=== PATIENT | male | born 1950 | race Caucasian/White ===

== ENCOUNTER → 2019-09-30 09:19 | Outpatient (BNVA) | payer MEDICARE, SELFPAY | PROVIDERS: Family Provider Internal Medicine; PCP Internal Medicine; Visit Provider Urology | DX: N40.0 Benign prostatic hyperplasia without lower urinary tract symptoms (principal); R33.9 Retention of urine, unspecified | CPT/HCPCS: 81001 ==

== ENCOUNTER → 2019-10-07 05:54 | Day surgery (SDC) | payer MEDICARE, SELFPAY ==
[2019-10-06 12:55] VITALS: BMI 30.5
[2019-10-07] VITALS (15 sets, daily range): BP systolic 89–118; BP diastolic 50–68; PULSE 54–60; RESP 11–19; TEMP 37; O2SAT 92–97
--- NOTE | 2019-10-07 06:00 | XACV_ITS ---
Wt: 91 kg BSA: 2.12 m2 Any Known Allergies: Other Gender: Male : 1950 Exam Type: Invasive Peripheral Vascular Procedure(s): Procedure Description: Peripheral Cath Diagnostic Procedure Exam Priority: Routine Lower Extremity Diagnostic Findings This patient has known peripheral arterial disease and has an occluded left superficial femoral artery. He has claudication which limits his ability to play golf and other activities. He has had femoral-popliteal bypass on the left which failed. He requested that I try to open the artery via a popliteal approach. He is [place] grade I, category 3; Mariella stage II. The left popliteal artery was entered rather easily. The artery is heavily calcified from beginning to end. The sheath was difficult to place due to the calcification. I used a Glidewire and a seeker catheter. The catheter was advanced about two thirds of the way up to the hip. I could never assure myself that I was in the lumen. I had no blood return through the seeker catheter. The wire would advance beyond the catheter up to approximately where the ostium of the SFA would be. It would not advance any further. Given I could never assure myself I was in the lumen I discontinued the procedure. The calcification and plaque burden makes it impossible to open the artery from an interventional standpoint. Conclusions Failed attempt at angioplasty and intervention of the left superficial femoral artery via the popliteal approach. Recommendations Vascular surgery referral. Access Site Site: Left Popliteal Sheath Size: 6 Fr Hemost... Method: Mechanical Compression Hemost... Success: Successful Procedure Details Findings Procedure Consent Obtained. Pre-Procedure Time Out. Identified patient by full name and date of as verbalized by the patient/guarantor. Does the consent match the physician's order: Yes. Accurate & Complete Informed Consent: Yes. Inpatient/Outpatient History & Physical on Chart: Yes. If H&P is completed, is and addenduem needed: N/A; If yes, is the addendum complete: N/A. Visualize and Verify Site with Patient/Guarantor: N/A. Relevant Radiology Images available: Yes. Pre-op teaching completed and patient verbalized understanding. The risks, benefits, and alternatives of sedation and/or procedure were discussed by physician. The patient agrees to continue. Procedure started. Correct patient, site and procedure confirmed by cath team. Current diagnosis: PVD. PERRLA. Strong, equal hand coremaker experimental bilaterally. Lungs clear x 5 lobes. IV Site on Arrival: 20 gauge in the left anticubital. IV Site on Arrival: Saline Lock. IV Fluids: 0.9% NaCl at KVO. 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 Pre Procedural Pulses: bilateral dorsalis pedis was Doppled. Pre Procedural Pulses: bilateral posterior tibial was Doppled. Pre Procedural Pulses: bilateral radial was 3+. Oxygen started at 2liters/min via nasal canula. left popliteal was prepped with chloroprep then draped in the usual sterile fashion. Physician notified. Baseline sample Acquired. HR: 62 BPM. Equipment: Peripheral. Cardiac Cath Pack. ACIST Manifold Kit Model BT 2000. Heparinized Saline (2 units/mL), 1000 mL bag. Physician arrived. Inventory is TR Glidewire Angled Stiff Shaft .035 260cm. Physician scrubbed in. Time out performed with cath team. Immediate Pre-Procedure Time Out. Correct Patient: Yes; Correct Procedure: Yes; Correct Site: Yes; Correct Patient Position: Yes; Correct Supplies: Yes; Dried Flammable Prep: Yes; Blood Products Available: No;. Lidocaine 1% infiltrated to the left popliteal. Arterial access obtained. glidewire inserted into left SFA. seeker inserted over glidewireinto left SFA. Patient's family updated. glidewire removed. Hand injection performed. glidewire inserted. glidewire removed. seeker removed. A Mechanical Compression was successful obtaining hemostatsis at the Left Popliteal insertion site. Sheath(s) removed and manual pressure held until hemostasis was achieved. Sterile 4x4 and Op-site applied to the puncture site. No oozing or hematoma noted. Post sheath removal instructions were given and the patient verbalized understanding. Post Procedure: Pulses reassessed and unchanged. PERRLA. Strong, equal hand coremaker experimental bilaterally. No VTE prophylaxis required. Fluoro: 8:09. Contrast type used: Visipaque 320 mgI/mL, 200 mL bottle. [id number]. Post-op diagnosis: PAD. Complications: none. Estimated blood loss: 5mL-10mL. Procedure completed. Patient transferred by bed to CPRU. Total IV fluids: 58.5 mL. Medication's Wasted: Other = versed 1 mg. Medication's Wasted: Other = fentanyl 25 mcg. Medication's Wasted: Lidocaine 1% = 10 mL. Medication's Wasted: Heparin = 1000 units. Vital chart was stopped. Procedure Medications Start: 7:09 AM Stop: 7:09 AM Medication: Versed Amount: 1 mg Route: I.V. Start: 7:09 AM Stop: 7:09 AM Medication: Fentanyl Amount: 50 mcg Route: I.V. Start: 7:41 AM Stop: 7:41 AM Medication: Versed Amount: 1 mg Route: I.V. I, the attending physician, have reviewed and verified all procedure medications. Yes, all medications given per verbal order History/Risk Factors Hypertension: Yes Dyslipidemia: Yes Diabetic Therapy: Insulin Peripheral Arterial Disease (PAD): Yes Myocardial Infarction (VT): No Obesity: No Tobacco Use: Former Prior Interventions PCI: Yes CABG: Yes Valve Surgery: No Date of PCI: 06/30/2015 Report Signatures Finalized by:Dr. Polo Henriquez MD on 10/07/2019 8:25:57 AM
[2019-10-07] MEDS: diphenhydrAMINE 50 mg Capsule PO (06:11)
[2019-10-07 06:44] LABS: Basophils # 0.1 10^3/uL (0.0-0.1); Basophils % 0.9 %; Eosinophils # 0.1 10^3/uL (0.0-0.8); Eosinophils % 1.3 %; Hematocrit 41.2 % (42.0-52.0); Hemoglobin 14.5 g/dL (11.7-16.6); Lymphocytes # 2.6 10^3/uL (0.8-4.8); Lymphocytes % 34.8 %; Mean Corpuscular HGB Conc 35.2 g/dL (30.0-36.0); Mean Corpuscular Hemoglobin 32.4 pg (28.0-34.0); Mean Corpuscular Volume 92.2 fL (80-94); Mean Platelet Volume 10.2 fL (7.4-10.4); Monocytes # 0.8 10^3/uL (0.2-0.9); Monocytes % 10.8 %; Neutrophils # 3.9 10^3/uL (1.8-7.7); Neutrophils % 51.4 %; Nucleated Red Blood Cells % 0 %; Platelet Count 232 10^3/cmm (130-400); Red Blood Count 4.47 10^6/uL (4.1-5.3); Red Cell Distribution Width 11.9 % (12.1-15.1); White Blood Count 7.5 10^3/uL (4.0-10.0)
[2019-10-07 06:57] LABS: Anion Gap 19.2 (5-19); Blood Urea Nitrogen 16 mg/dL (8-23); Calcium 9.8 mg/dL (8.5-10.5); Carbon Dioxide 25 mmol/L (22-29); Chloride 91 mmol/L (98-107); Glomerular Filtration Rate 59.9 mL/min (90-130); Glucose 167 mg/dL (65-115); Osmolality Calculated 272 mOsm/kg (285-295); Potassium 4.2 mmol/L (3.5-5.1); Sodium 131 mmol/L (136-145)
--- NOTE | 2019-10-07 08:00 | PC.NURSE ---
BACK FROM FOOD SERVICE ORDER CLERK RECEIVED THE PATIENT BACK FROM THE FOOD SERVICE ORDER CLERK S/P DIAGNOSTIC PERIPHERAL ANGIOGRAM VIA COT WITH JAIME ELAINE RN, DIVISION CONTROLLER. PATIENT DROWSY BUT AWAKENS EASILY TO NAME. ALERT AND ORIENTATED X 3. ENGINEERING PROGRAM ANALYST PLACED AND VITAL SIGNS OBTAINED. DRESSING INTACT TO THE LEFT POPLITEAL. SITE SOFT WITH NO BLEEDING OR HEMATOMA NOTED. SHEATH WAS PULLED IN THE FOOD SERVICE ORDER CLERK. DP AND PT PULSES DOPPLED. SPOUSE AT BEDSIDE. NO OTHER ASSESSMENT CHANGES NOTED FROM PRE CATH ASSESSMENT. SPOUSE AT BEDSIDE.
--- NOTE | 2019-10-07 09:00 | PC.NURSE ---
BREAKFAST TO THE PATIENT
--- NOTE | 2019-10-07 11:33 | PC.NURSE ---
CPRU NOTE DR MITCHELL AT BEDSIDE TO TALK WITH THE PATIENT AND HIS SPOUSE ABOUT RESULTS OF THE ANGIOGRAM AND THE NEXT STEPS. THE PATIENT AND HIS SPOUSE VERBALIZED THEIR UNDERSTANDING. THE PATIENT THEN WAS OUT OF BED, AMBULATED AROUND CPRU FOR APPROXIMATELY 10 MINUTES WITHOUT DIFFICULTY. THE LEFT POPLITEAL SITE IS UNCHANGED FROM PREVIOUS ASSESSMENTS. PATIENT THEN AMBULATED TO THE RESTROOM TO VOID AND BACK TO THE CPRU ROOM 3 TO SIT IN THE CHAIR. WILL CONTINUE TO MONITOR AND PLAN FOR DISCHARGE AT 1200.
== END | disposition home or self-care (01) ==
PROVIDERS: Family Provider Internal Medicine; PCP Internal Medicine; Visit Provider Internal Medicine Cardiovascular Disease
DX: I70.203 Unspecified atherosclerosis of native arteries of extremities, bilateral legs (principal)
CPT/HCPCS: 80048; 85025; C1769; C1887; C1894; J1644; J2001; J2250; J3010; J7030; Q0163; Q9967

== ENCOUNTER → 2020-01-11 09:03 | Outpatient (BNVA) | payer MEDICARE, SELFPAY | PROVIDERS: Family Provider Internal Medicine; PCP Internal Medicine; Visit Provider Internal Medicine Cardiovascular Disease | DX: I25.10 Atherosclerotic heart disease of native coronary artery without angina pectoris (principal); M79.89 Other specified soft tissue disorders; I65.23 Occlusion and stenosis of bilateral carotid arteries; Z79.4 Long term (current) use of insulin; E11.65 Type 2 diabetes mellitus with hyperglycemia; R06.02 Shortness of breath; G47.33 Obstructive sleep apnea (adult) (pediatric); E78.2 Mixed hyperlipidemia; I73.9 Peripheral vascular disease, unspecified; I10 Essential (primary) hypertension | CPT/HCPCS: 80048 ==

== ENCOUNTER 2020-01-21 15:26 | Outpatient (CLI) | payer MEDICARE, SELFPAY ==
--- NOTE | 2020-01-21 15:45 | USCV_ITS ---
Soy Lee Age: 69 Gender: M : 1950 Exam Date: 01/21/2020 15:38 Ordering Phys: Tiaog Ramírez MD ([email or web address]) Technologist: Courtney Lujan Exam Location: [facility] – [place] Indication: LEG SWELLING HISTORY: LEFT LOWER EXTREMITY EDEMA PROCEDURES: On the left side, the common femoral, superficial femoral, profunda femoral, popliteal, posterior tibial, greater saphenous veins, and the peroneal trunk were identified and interrogated in the standard fashion. FINDINGS: No DVT or superficial thrombus in LLE. The veins were found to be easily compressible with spontaneous blood flow. Non pulsatile flow pattern. CONCLUSIONS No evidence of DVT in the above-mentioned identifiable veins. Dr Tiago Ramírez MD [facility] (Electronically Signed) Final Date: 21 January 2020 16:48 S
== END 2020-01-21 15:27 | disposition home or self-care (01) ==
LOC: RAD 15:31
PROVIDERS: PCP Internal Medicine; Visit Provider Internal Medicine Cardiovascular Disease
DX: M79.89 Other specified soft tissue disorders (principal)
CPT/HCPCS: 93971

== ENCOUNTER 2020-04-18 10:35 | Outpatient (CLI) | payer MEDICARE, SELFPAY ==
--- NOTE | 2020-04-18 10:42 | USCV_ITS ---
Soy Lee Age: 69 Gender: M : 1950 Exam Date: 04/18/2020 11:04 Ordering Phys: Jonah Barajas DO Technologist: Amrita Crum Exam Location[place] [facility] [place] Indication: BILAT KNEE PAIN Risk Factors: Previous Vascular Surgery: RIGHT LEFT BP: 133.0 / 61.00 BP: 144.0/ 61.00 0 0 Waveform Velocity (cm/s) Velocity (cm/s) Waveform Biphasic 121.2 Iliac Prox 158.8 Biphasic Biphasic 149.1 Iliac Mid 134.7 Biphasic Biphasic 147.6 Iliac Distal 132.7 Biphasic Biphasic 149.1 DATA CAPTURE CLERK 98.5 Biphasic Biphasic 48.2 SFA Prox 76.4 Biphasic Monophasic 155.4 SFA Mid 58.3 Biphasic Monophasic SFA Dist Biphasic 74.6 58.3 Monophasic 60.6 POP 114.6 Triphasic Monophasic 23.7 COMMERCIAL LINES ACCOUNT ASSISTANT 38.2 Biphasic Monophasic 42.0 DPA 54.3 Biphasic 0.7 LORENA 1.0 FINDINGS RT DPA 105 COMMERCIAL LINES ACCOUNT ASSISTANT 88 LT DPA 122 COMMERCIAL LINES ACCOUNT ASSISTANT 140 Abnormal resting LORENA on the right side Normal resting LORENA on the left side Elevated Doppler velocity in the mid SFA on the right side CONCLUSIONS 1. Abnormal resting LORENA on the right side with features suggestive of greater than 50% stenosis at the mid SFA. 2. Normal resting LORENA on the left side , suggesting no significant obstructive arterial disease Dr Tiago Ramírez MD [facility] (Electronically Signed) Final Date: 19 April 2020 23:09 S
== END 2020-04-18 10:36 | disposition home or self-care (01) ==
LOC: RAD 10:39
PROVIDERS: PCP Internal Medicine; Visit Provider Internal Medicine
DX: M79.604 Pain in right leg (principal); M79.605 Pain in left leg
CPT/HCPCS: 93925

== ENCOUNTER 2020-06-07 07:55 | Outpatient (CLI) | payer MEDICARE, SELFPAY ==
--- NOTE | 2020-06-07 08:00 | CT_ITS ---
WS: [id number] CT ANGIOGRAPHY LOWER EXTREMITY RUNOFF HISTORY: peripheral artery disease TECHNIQUE: Arterial injection is performed during imaging to evaluate the lower extremity arteries to the ankles. MIP and volume rendering imaging has also been performed. All images are reviewed. All C T scans at [facility] use at least one of these dose optimization techniques: automated ex posure control; mA and/or kV adjustment per patient size (includes targeted exams where dose is match ed to clinical indication); or iterative reconstruction. Contrast: Omnipaque 350; 95 mL IV. DLP: 1322.88 mGycm COMPARISON: Duplex ultrasound 04/18/2020 Distal abdominal aorta is heavily calcified. Peripheral calcification with no aneurysm appreciated. RIGHT lower extremity arterial system: Heavy calcification continues through the RIGHT common, fashion intern al and external iliac arteries. Multifocal plaque continues through the common femoral artery through the popliteal artery. Multifocal areas of mild to severe stenosis throughout the RIGHT lower extremi ty. High-grade stenosis scattered throughout the SFA. Occlusion versus near complete occlusion in the mid SFA. There are multifocal areas of significant stenosis throughout the superficial femoral arter y. There are additional high-grade stenoses in the popliteal artery. Small caliber vessel runoff to the ankle below the popliteal artery. The posterior tibial artery is o ccluded distally. Multifocal areas of high-grade stenosis involving the superficial femoral artery and popliteal artery . There are multiple areas of high-grade stenosis near 75% in the mid to distal superficial femoral a nd also in the popliteal artery. Visually some these area. This appeared greater than 75%. LEFT lower extremity arterial system: Severe circumferential plaque in the proximal LEFT common iliac artery. Significant burden of calcification throughout the iliac arteries. There is a bypass graft e xtending from the common femoral artery to the popliteal artery. Bypass graft is patent. There is pos sible stent in the popliteal artery with the lumen being narrowed. It is difficult to see contrast en hancement due to the dense calcification in the artery. Enhancement was noted throughout all 3 vessel s to the ankle although the vessels are small caliber. Extensive diverticular disease throughout the sigmoid colon. Well-distended urinary bladder. Inguinal canals are patent bilaterally containing fat only. Benign inguinal lymph nodes. Bilateral Pearce's [place]. CT/[id number] IMPRESSION: 1. Multilevel severe areas of high-grade stenosis throughout the RIGHT SFA and popliteal artery. Stenosis calculated at 75% at multiple locations in the mid to distal SFA and popliteal artery. Visually the stenosis appears greater and a pproachs 90%. 2. Moderate calcified plaque in the RIGHT common iliac artery to the external iliac artery with stenosis near 50%. 3. LEFT femoral to popliteal artery bypass graft is intact. 4. Distal occluded RIGHT posterior tibial artery. 5. Heavy calcification of the distal aorta and common iliac arteries. 6. Bilateral Pearce's cysts. 7. Sigmoid diverticulosis.
[2020-06-07] MEDS: iohexol 350 mg/mL 100 mL Btl IV (08:36)
== END 2020-06-07 07:56 | disposition home or self-care (01) ==
LOC: RADWPI 08:00
PROVIDERS: PCP Internal Medicine; Visit Provider Internal Medicine Cardiovascular Disease
DX: I73.9 Peripheral vascular disease, unspecified (principal); T82.898A Other specified complication of vascular prosthetic devices, implants and grafts, initial encounter; E11.9 Type 2 diabetes mellitus without complications; I10 Essential (primary) hypertension; M71.22 Synovial cyst of popliteal space [Baker], left knee; M71.21 Synovial cyst of popliteal space [Baker], right knee; K57.30 Diverticulosis of large intestine without perforation or abscess without bleeding; I70.8 Atherosclerosis of other arteries
CPT/HCPCS: 73706; Q9967

== ENCOUNTER 2020-10-26 13:54 | Outpatient (CLI) | payer MEDICARE, SELFPAY ==
--- NOTE | 2020-10-26 14:15 | USCV_ITS ---
Jesus Soy Age: 70 Gender: M : 1950 Exam Date: 10/26/2020 14:08 Ordering Phys: Tiago Ramírez MD ([email or web address]) Technologist: Liyah Alexander Exam Location: [facility] [place] Indication: DISORDER OF ARTERIES AND ARTERIOLES Risk Factors: Previous Vascular Surgery: Right Brachial BP: / Left Brachial BP: / Right Left Velocity (cm/s) Spectral Plaque Velocity (cm/s) Spectral Plaque Syst/Diast Broadening Syst/Diast Broadening 72.80/ 8.80 Prox CCA 67.20 / 8.10 75.40/ 6.20 Mid CCA 64.10 / 11.10 66.80/ 7.00 Distal CCA 79.50 / 9.20 100.00/16.45 Prox ICA 132.90/ 15.17 59.50/ 10.10 Mid ICA 96.20 / 16.50 46.70/ 11.00 Distal ICA 60.50 / 19.20 72.80 ECA 180.50 1.36 ICA/CCA 2.10 Antegrade Vertebral Antegrade 31.80/ 7.00 cm/s 30.00/ 9.30 cm/s Bi Subclavian Bi 74.70 84.30 FINDINGS Moderate to heavy heterogeneous plaques at the left bifurcation and proximal internal carotid artery. Moderate heterogeneous plaques of the right bifurcation and internal carotid artery. Antegrade flow in the vertebral arteries bilaterally. Normal Doppler flow velocities in the subclavian arteries bilaterally CONCLUSIONS Moderate to heavy heterogeneous plaques at the left bifurcation and proximal internal carotid artery with velocity elevation consistent with 50 to 69% stenosis Moderate heterogeneous plaques of the right bifurcation and internal carotid artery with velocity elevation consistent with less than 50% stenosis. No significant stenosis in the vertebral or subclavian arteries Dr Tiago Ramírez MD [facility] (Electronically Signed) Final Date: 27 October 2020 19:00 S
== END 2020-10-26 13:55 | disposition home or self-care (01) ==
LOC: US 13:54
PROVIDERS: PCP Internal Medicine; Visit Provider Internal Medicine Cardiovascular Disease
DX: I77.9 Disorder of arteries and arterioles, unspecified (principal); I65.23 Occlusion and stenosis of bilateral carotid arteries
CPT/HCPCS: 93880

== ENCOUNTER → 2020-11-20 10:39 | Outpatient (BNVA) | payer MEDICARE, SELFPAY | PROVIDERS: PCP Internal Medicine; Visit Provider Urology | DX: N40.0 Benign prostatic hyperplasia without lower urinary tract symptoms (principal); Z12.5 Encounter for screening for malignant neoplasm of prostate | CPT/HCPCS: 81003 ==

== ENCOUNTER 2021-05-15 10:15 | Outpatient (CLI) | payer MEDICARE, SELFPAY ==
--- NOTE | 2021-05-15 10:15 | USCV_ITS ---
Jesus Soy Age: 70 Gender: M : 1950 Exam Date: 05/15/2021 10:43 Ordering Phys: Tiago Ramírez MD ([email or web address]) Technologist: Courtney Lujan [place] [facility] [place]: PVD -pre op knee Risk Factors: PATIENT SCHEDULED FOR RIGHT KNEE SURGERY 1 WEEK Previous Vascular Surgery: left fem pop stent, left iliac bypass RIGHT LEFT BP: 138.0 / 72.00 BP: 140.0/ 78.00 0 0 Waveform Velocity (cm/s) Velocity (cm/s) Waveform Biphasic 151.3 Iliac Prox 36.8 Monophasic Biphasic 90.6 Iliac Mid 61.9 Biphasic Biphasic 94.8 Iliac Distal 67.6 Biphasic Biphasic 152.3 OIL SALES AND SERVICE REP 58.3 Biphasic Biphasic SFA Prox Biphasic 166.3 51.3 Monophasic 55.9 SFA Mid 67.2 Biphasic Monophasic 47.3 SFA Dist 57.5 Biphasic Monophasic 32.9 POP 128.8 Biphasic QA REVIEWER 48.9 Biphasic 0.0 Monophasic 87.5 DPA 44.4 Monophasic 0.6 LORENA 1.0 FINDINGS SCHEDULED FOR KNEE SURGERY 1 WEEK. NO RIGHT QA REVIEWER FLOW FOUND. NO DISCOLORATION NOTED. Resting LORENA of 0.6 on the right side and 1.0 on the left side No Doppler flow signals in the right posterior tibial artery CONCLUSIONS 1. Abnormal resting LORENA, consistent with moderate peripheral artery disease on the right side. 2. Normal resting LORENA on the left side. 3. Features of total occlusion of the posterior tibial artery on the right side Compared to the study from April 18, 2020, the occlusion of the posterior tibial artery on the right side appears to be new Dr Tiago Ramírez MD [facility] (Electronically Signed) Final Date: 15 May 2021 19:38 S
== END 2021-05-15 10:16 | disposition home or self-care (01) ==
LOC: RAD 10:21
PROVIDERS: PCP Internal Medicine; Visit Provider Internal Medicine Cardiovascular Disease
DX: I73.9 Peripheral vascular disease, unspecified (principal); T82.898A Other specified complication of vascular prosthetic devices, implants and grafts, initial encounter; Y82.9 Unspecified medical devices associated with adverse incidents; I70.92 Chronic total occlusion of artery of the extremities
CPT/HCPCS: 93925

== ENCOUNTER 2021-06-26 08:35 | Outpatient (RCR) | payer MEDICARE, SELFPAY | END 2021-07-17 23:59 | disposition home or self-care (01) | LOC: SPT 08:35 | PROVIDERS: PCP Orthopaedic Surgery; Visit Provider Orthopaedic Surgery | DX: T84.498D Other mechanical complication of other internal orthopedic devices, implants and grafts, subsequent encounter (principal); Z96.659 Presence of unspecified artificial knee joint; Y82.8 Other medical devices associated with adverse incidents | CPT/HCPCS: 97110; 97161 ==

== ENCOUNTER 2021-07-18 06:00 | Outpatient (RCR) | payer MEDICARE, SELFPAY | END 2021-08-17 23:59 | disposition home or self-care (01) | LOC: SPT 06:00 | PROVIDERS: PCP Orthopaedic Surgery; Visit Provider Orthopaedic Surgery | DX: T84.498D Other mechanical complication of other internal orthopedic devices, implants and grafts, subsequent encounter (principal); Z96.651 Presence of right artificial knee joint; Z47.1 Aftercare following joint replacement surgery | CPT/HCPCS: 97110 ==

== ENCOUNTER 2021-10-30 07:06 | Outpatient (CLI) | payer MEDICARE, SELFPAY ==
--- NOTE | 2021-10-30 07:15 | USCV_ITS ---
Soy Lee Age: 71 Gender: M : 1950 Exam Date: 10/30/2021 07:30 Ordering Phys: Tiago Ramírez MD ([email or web address]) Technologist: BRYNA Exam Location: [facility] – [place] Indication: RLE PAIN Risk Factors: Previous Vascular Surgery: RIGHT LEFT Waveform Velocity (cm/s) Velocity (cm/s) Waveform Triphasic Iliac Prox 84.5 Triphasic 77.3 Iliac Mid Triphasic 112.6 Iliac Distal Triphasic 124.2 SPLICER OPERATOR Monophasic 99.4 SFA Prox Monophasic 97.9 SFA Mid Monophasic SFA Dist 60.5 Monophasic 44.2 POP N/A DIRECTOR GEOPHYSICAL LABORATORY Monophasic 39.4 DPA 0.6 LORENA FINDINGS MULTIPLE AREAS OF [place] AND CA++ SEEN. NO FLOW SEEN AT RIGHT DIRECTOR GEOPHYSICAL LABORATORY Moderate dense diffuse plaques in the femoral and popliteal artery on the right side Normal Doppler flow signals in the right posterior tibial artery CONCLUSIONS Abnormal resting LORENA of 0.6, suggesting moderate peripheral artery disease in the right side. Moderate diffuse plaques are noted in the femoral and popliteal artery on the right side The right posterior artery appears to be occluded. Compared to the study from 05/15/2021, there may not be a significant change Dr Tiago Ramírez MD [facility] (Electronically Signed) Final Date: 30 October 2021 20:10 S
== END 2021-10-30 07:07 | disposition home or self-care (01) ==
PROVIDERS: PCP Internal Medicine; Visit Provider Internal Medicine
DX: Z98.890 Other specified postprocedural states (principal); M79.604 Pain in right leg; I70.8 Atherosclerosis of other arteries
CPT/HCPCS: 93926

== ENCOUNTER 2021-10-31 07:56 | Outpatient (CLI) | payer MEDICARE, SELFPAY ==
--- NOTE | 2021-10-31 07:45 | USCV_ITS ---
Soy Lee Age: 71 Gender: M : 1950 Exam Date: 10/31/2021 08:12 Ordering Phys: Tiago Ramírez MD ([email or web address]/[facility]) Technologist: Naveen Gordon Exam Location: [facility] [place] Indication: stenosis of carotid arteries Risk Factors: Previous Vascular Surgery: Right Brachial BP: / Left Brachial BP: / Right Left Velocity (cm/s) Spectral Plaque Velocity (cm/s) Spectral Plaque Syst/Diast Broadening Syst/Diast Broadening 80.50/ 7.70 Prox CCA 56.80 / 10.20 93.70/ 11.00 Mid CCA 61.50 / 13.70 86.00/ 9.90 Distal CCA 94.80 / 23.10 114.80/24.30 Prox ICA 143.90/ 37.80 125.20/15.80 Mid ICA 52.80 / 23.30 54.90/ 10.40 Distal ICA 48.90 / 23.30 127.90 ECA 293.90 1.34 ICA/CCA 2.25 Antegrade Vertebral Antegrade 34.70/ 7.60 cm/s 62.10/ 16.30 cm/s Tri Subclavian Tri 96.30 124.6 0 FINDINGS Moderate to heavy heterogeneous plaques of the left bifurcation and proximal ICA Moderate heterogeneous plaques at the right bifurcation and proximal ICA Antegrade flow in the vertebral arteries bilaterally Normal Doppler flow velocities in the subclavian arteries bilaterally CONCLUSIONS Moderate to heavy heterogeneous plaques of the left bifurcation and proximal ICA with velocity elevation, consistent with 50 to 69% stenosis. Moderate heterogeneous plaques at the right bifurcation and proximal ICA with velocity elevation, consistent with less than 50% stenosis. Elevated velocity in the left external carotid artery, suggestive of hemodynamically significant stenosis Compared with the study from 10/26/2020, there may not be a significant change Elevated velocity in the left external carotid artery, suggestive of hemodynamically significant stenosis Dr Tiago Ramírez MD [facility] (Electronically Signed) Final Date: 02 November 2021 09:54 S
== END 2021-10-31 07:57 | disposition home or self-care (01) ==
LOC: RAD 07:58
PROVIDERS: PCP Internal Medicine; Visit Provider Internal Medicine Cardiovascular Disease
DX: I65.23 Occlusion and stenosis of bilateral carotid arteries (principal)
CPT/HCPCS: 93880

== ENCOUNTER → 2021-11-21 10:24 | Outpatient (BNVA) | payer MEDICARE, SELFPAY | PROVIDERS: PCP Internal Medicine; Visit Provider Nurse Practitioner Family | DX: N40.0 Benign prostatic hyperplasia without lower urinary tract symptoms (principal) | CPT/HCPCS: 81003 ==

== ENCOUNTER → 2021-12-18 10:17 | Outpatient (BNVA) | payer MEDICARE, SELFPAY | PROVIDERS: PCP Internal Medicine; Visit Provider Urology | DX: N40.0 Benign prostatic hyperplasia without lower urinary tract symptoms (principal); R33.9 Retention of urine, unspecified | CPT/HCPCS: 51798; 81003; 99213 ==

== ENCOUNTER → 2022-04-10 14:20 | Outpatient (BNVA) | payer MEDICARE, SELFPAY | PROVIDERS: PCP Internal Medicine; Visit Provider Internal Medicine Cardiovascular Disease | DX: I25.10 Atherosclerotic heart disease of native coronary artery without angina pectoris (principal); I65.23 Occlusion and stenosis of bilateral carotid arteries; I73.9 Peripheral vascular disease, unspecified; I10 Essential (primary) hypertension; E11.65 Type 2 diabetes mellitus with hyperglycemia; Z79.4 Long term (current) use of insulin; E78.2 Mixed hyperlipidemia; Z87.891 Personal history of nicotine dependence; Z95.1 Presence of aortocoronary bypass graft | CPT/HCPCS: 99214 ==

== ENCOUNTER → 2022-06-18 13:27 | Outpatient (BNVA) | payer MEDICARE, SELFPAY | PROVIDERS: PCP Internal Medicine; Visit Provider Urology | DX: N40.0 Benign prostatic hyperplasia without lower urinary tract symptoms (principal) | CPT/HCPCS: 51741; 51798; 81003; 99213 ==

== ENCOUNTER → 2022-10-15 13:58 | Outpatient (BNVA) | payer MEDICARE, SELFPAY | PROVIDERS: PCP Internal Medicine; Visit Provider Internal Medicine Cardiovascular Disease | DX: I25.10 Atherosclerotic heart disease of native coronary artery without angina pectoris (principal); I65.23 Occlusion and stenosis of bilateral carotid arteries; E78.2 Mixed hyperlipidemia; I10 Essential (primary) hypertension; I73.9 Peripheral vascular disease, unspecified; G47.33 Obstructive sleep apnea (adult) (pediatric); E11.65 Type 2 diabetes mellitus with hyperglycemia; Z79.4 Long term (current) use of insulin; Z87.891 Personal history of nicotine dependence; Z95.1 Presence of aortocoronary bypass graft; Z98.61 Coronary angioplasty status | CPT/HCPCS: 93005; 99214 ==

== ENCOUNTER 2022-11-07 06:43 | Outpatient (CLI) | payer MEDICARE, SELFPAY ==
--- NOTE | 2022-11-07 07:00 | USCV_ITS ---
Soy Lee Age: 72 Gender: M : 1950 Exam Date: 11/07/2022 07:04 Ordering Phys: Tiago Ramírez MD ([email or web address]/[facility]) Technologist: SHARON Exam Location: [facility] [place] Indication: CAROTID STENOSIS Risk Factors: Previous Vascular Surgery: Right Brachial BP: / Left Brachial BP: / Right Left Velocity (cm/s) Spectral Plaque Velocity (cm/s) Spectral Plaque Syst/Diast Broadening Syst/Diast Broadening 98.30/ 8.50 Prox CCA 48.60 / 8.50 100.00/12.00 Mid CCA 76.90 / 14.00 95.70/ 10.30 Distal CCA 61.40 / 9.30 116.30/21.80 Prox ICA 81.60 / 24.30 111.40/18.70 Mid ICA 70.60 / 25.40 92.60/ 18.70 Distal ICA 61.70 / 19.80 102.20 ECA 108.10 1.16 ICA/CCA 1.06 Vertebral 46.10/ 8.50 cm/s 58.00/ 11.40 cm/s Subclavian 61.00 94.90 FINDINGS Moderate heterogenous plaques at the right bifurcation and internal carotid artery Minimal plaques of the left bifurcation and proximal internal carotid artery. Antegrade flow in the vertebral arteries bilaterally. Normal Doppler flow velocities in the external carotid and subclavian arteries bilaterally CONCLUSIONS Moderate heterogenous plaques at the right bifurcation and internal carotid artery, suggesting less than 50% stenosis Minimal plaques of the left bifurcation and proximal internal carotid artery, suggesting less than 50% stenosis. No significant stenosis in the external carotid, vertebral or subclavian arteries based on the flow velocity measurements Dr Tiago Ramírez MD [facility] (Electronically Signed) Final Date: 10 November 2022 17:08 S
== END 2022-11-07 06:44 | disposition home or self-care (01) ==
PROVIDERS: PCP Internal Medicine; Visit Provider Internal Medicine Cardiovascular Disease
DX: I65.23 Occlusion and stenosis of bilateral carotid arteries (principal); I77.9 Disorder of arteries and arterioles, unspecified
CPT/HCPCS: 93880

== ENCOUNTER 2022-11-13 06:34 | Outpatient (CLI) | payer MEDICARE, SELFPAY ==
--- NOTE | 2022-11-13 | ECG_ITS ---
[facility] Test Date: 2022-11-13 Pat Name: Soy Lee Department: Room: Gender: Male Tobacco Stemmer: : 1950 Requested By: Tiago Ramírez Order Number: [id number] Emelia MD: Tiago Ramírez M.D. Interpretive Statements NAME OF STUDY: LEXISCAN SESTAMIBI STRESS TEST INDICATION: Chest Pain PROCEDURE: At the baseline, the EKG revealed sinus bradycardia at a rate of 53 bpm. Incomplete right bundle branch block pattern. The baseline heart was 53 bpm with a blood pressue of 129/68 mm of Hg Lexiscan was infused over a period of 20 seconds. A total of 0.4 milligrams of Lexiscan was infused. The stress phase was continued for a total of 5 minutes. Heart rate at the end of the stress phase was 64 bpm with a blood pressure 117/55 mm of Hg. The EKG at the peak infusion revealed no significant changes. Sestamibi was injected 20 seconds after the Lexiscan infusion. Heart rate at the end of the recovery phase was 61 bpm with a blood pressure of 124/58 mm of Hg. CONCLUSION: 1. No significant EKG changes with the LexiScan infusion 2. No LexiScan induced chest pain or cardiac arrhythmia 3. Normal blood pressure and heart rate response 4. Sestamibi/sestamibi perfusion scan pending; see separate report. Electronically Signed On 11-15-2022 17:09:53 CDT by Tiago Ramírez M.D. [id number]
[2022-11-13 06:55] VITALS: BMI 31.4
--- NOTE | 2022-11-13 06:57 | NMCV_ITS ---
NM dannie perf SPECT r/s* [id number] Soy Lee Age: 72 Gender: M : 1950 Exam Date: 11/13/2022 07:45 Ordering Phys: Tiago Ramírez MD ([email or web address]) Technologist: PORSHA Mcconnell Exam Location: [facility] Indications: CORONARY ANGIOPLASTY STATUS STRESS TEST Please see separate stress test report in [facility] for full findings IMAGE PROTOCOL Rest/Stress 1 Lexiscan Day Radiopharmaceutical Dose (mCi) Administration Site Administered by Rest: Tc-99m 10.8 IV PORSHA Sosa Sestamibi Stress:Tc-99m 32.4 IV PORSHA Sosa Sestamibi Rest: 13-Nov-2022 60 Discovery 630 Stress: 13-Nov-2022 30 Discovery 630 0.4mg Lexiscan. Images obtained in supine and prone position. SPECT RESULTS Technical Quality: Excellent Raw Data Analysis: Normal Image Corrections: No attenuation or motion correction applied Summed Stress Score: 12 Summed Rest Score: 1 Summed Difference Score: 11 PERFUSION FINDINGS Moderate area of moderately decreased eccentric in the mid and apical inferior, mid inferolateral, mid anterolateral, apical lateral, apical anterior and LV apex Significant reversibility was noted in these regions. FUNCTIONAL RESULTS (calculated via Gated SPECT) Stress Image LV EF (%): 72 Stress EDV (mL):126 TID: 1.04 Stress ESV (mL):35 FUNCTIONAL FINDINGS: Segmental wall motion analysis revealing no gross wall motion normalities noted IMPRESSIONS 1. Myocardial perfusion imaging revealing moderate area of reversible defect in the inferior, inferolateral lateral, anterolateral and apical regions suggesting ischemia in the distribution of all the 3 coronary arteries, most of the left circumflex artery and right coronary artery with some involvement of the left and descending artery as well. 2. Normal LV ejection fraction 72%. 3. LV wall motion analysis revealing no gross wall motion abnormalities. 4. Normal LV volume Compared to the previous study from 05/29/2018, the ischemia appears to be more in the apical segments on the current study Dr Tiago Ramírez MD [facility] (Electronically Signed) Final Date: 13 November 2022 16:53 S
[2022-11-13] MEDS: regadenoson 0.4 Mg/5 ml Syringe IVP (08:25)
[2022-11-13 08:46] VITALS: BP 126/76; PULSE 82
== END 2022-11-13 06:35 | disposition home or self-care (01) ==
PROVIDERS: PCP Internal Medicine; Visit Provider Internal Medicine Cardiovascular Disease
DX: R07.9 Chest pain, unspecified (principal); Z98.61 Coronary angioplasty status
CPT/HCPCS: 36415; 78452; 93017; 96374; A9500; J2785

== ENCOUNTER 2022-12-02 11:38 | Outpatient (CLI) | payer MEDICARE, SELFPAY ==
[2022-12-02 12:44] LABS: Basophils # 0.1 10^3/uL (0.0-0.1); Basophils % 0.8 %; Eosinophils # 0.1 10^3/uL (0.0-0.8); Hematocrit 42.5 % (42.0-52.0); Hemoglobin 14.1 g/dL (11.7-16.6); Lymphocytes # 1.6 10^3/uL (0.8-4.8); Lymphocytes % 20.1 %; Mean Corpuscular HGB Conc 33.2 g/dL (30.0-36.0); Mean Corpuscular Hemoglobin 30.9 pg (28.0-34.0); Mean Platelet Volume 9.6 fL (7.4-10.4); Monocytes # 0.7 10^3/uL (0.2-0.9); Monocytes % 8.8 %; Neutrophils # 5.31 10^3/uL (1.8-7.7); Neutrophils % 68.5 %; Nucleated Red Blood Cells % 0 %; Platelet Count 192 10^3/cmm (130-400); Red Blood Count 4.57 10^6/uL (4.1-5.3); Red Cell Distribution Width 12.4 % (12.1-15.1); White Blood Count 7.8 10^3/uL (4.0-10.0)
[2022-12-02 12:55] LABS: INR 0.91 (0.83-1.21); Prothrombin Time (Patient) 12.5 Seconds (12.0-15.1)
[2022-12-02 13:00] LABS: Blood Urea Nitrogen 15 mg/dL (8-23); Calcium 9.2 mg/dL (8.5-10.5); Carbon Dioxide 23 mmol/L (22-29); Chloride 88 mmol/L (98-107); Glucose 332 mg/dL (65-115); Osmolality Calculated 274 mOsm/kg (285-295); Sodium 125 mmol/L (136-145)
[2022-12-02 13:06] LABS: Anion Gap 18.4 (5-19); Potassium 4.4 mmol/L (3.5-5.1)
== END 2022-12-02 11:39 | disposition home or self-care (01) ==
PROVIDERS: PCP Internal Medicine; Visit Provider Internal Medicine Cardiovascular Disease
DX: I25.10 Atherosclerotic heart disease of native coronary artery without angina pectoris (principal); R94.39 Abnormal result of other cardiovascular function study
CPT/HCPCS: 36415; 80048; 85025; 85610; 86850; 86900

== ENCOUNTER 2022-12-05 06:00 | Outpatient (CLI) | payer MEDICARE, SELFPAY ==
[2022-12-05] VITALS (29 sets, daily range): BP systolic 104–175; BP diastolic 56–83; PULSE 51–61; RESP 5–20; O2SAT 90–97; BMI 31.4
--- NOTE | 2022-12-05 06:00 | XACV_ITS ---
Exam Room: 2 Ht: 173 cm Wt: 94 kg BSA: 2.15 m2 Gender: Male : 1950 Any Known Allergies: Other Exam Priority: Routine Procedure(s): Procedure Description: Diagnostic procedure Procedure Description: Coronary Angiography Diagnostic Cath Status: Elective Diagnostic Findings * The left main is a medium caliber vessel which appears to tapering narrowing of around 20% distally. * The left anterior descending artery is a medium caliber vessel which appears to wrap around the LV apex. The proximal to mid stented segment was found to be widely patent with no significant in-stent stenosis. Right after the second diagonal branch, there was a segmental narrowing of around 50% in the LAD. The distal LAD was found to have minimal intimal irregularities. The first diagonal branch was found to have around 40 to 50% diffuse narrowing proximally. Moderate calcification was noted in the proximal and mid segment of the artery. * The left circumflex artery is a medium caliber codominant vessel. The artery was found to have around 40% narrowing at the takeoff of the first obtuse marginal branch. The first obtuse marginal branch also was found to have around 40 to 50% ostial narrowing. The second obtuse marginal artery also was found to have around 40% narrowing proximally. Right after the second obtuse marginal branch, the circumflex proper was found to have around 40% segmental narrowing. The distal artery was found to have mild diffuse intimal irregularities with no significant stenotic lesion. * The right coronary artery appears to be totally occluded after giving of the sinus jenny branch. Some bridging collaterals were noted filling upthe PLV branch. * The saphenous venous graft to the PDA was found to be totally occluded. Grade 2 (collaterals were noted filling of the PDA branch of the right coronary artery. PCI Status: Elective Conclusions 1. 72-year-old white male with a history of coronary artery disease, status post single-vessel coronary bypass surgery, status post PCI, is presenting with increasing episodes of chest pain. Patient had an abnormal Myocardial perfusion imaging. For further evaluation of his coronary status as well as the graft status, a cardiac catheterization was recommended. Patient underwent left and right coronary angiogram and graft angiogram today. The findings are as follows. 2. 1. Distal left main stenosis of around 20%. 2. Patent stented segment of the proximal to the mid LAD. Around 50% napkin ring type of lesion in the distal LAD.3. Mild to moderate diffuse disease in the circumflex artery.4. Total occlusion of the venous graft to the PDA at its proximal anastomosis. Grade 2 left to right collaterals filling of the PDA of the right coronary artery. Some bridging collaterals filling of the PLV branches right coronary artery. Mild diffuse disease in the other vessels.. Diagnostic RX Recommendation: medical therapy and/or counseling Left Ventriculography Findings: * The LV gram was not performed because of the concern of the dye overload. Pressures Phase:Rest AO : 105 / 48 ( 69 ) @ 8:43:00 AM 78 / 47 ( 61 ) @ 8:52:00 AM 115 / 48 ( 73 ) @ 8:57:00 AM 101 / 55 ( 77 ) @ 9:06:00 AM 112 / 66 ( 88 ) @ 9:13:00 AM Clinical Evaluation EBL: 5mL-10mL Procedural Details Procedure Consent Obtained. Admit Source: Out Patient. Pre-Procedure Time Out. Identified patient by full name and date of as verbalized by the patient/guarantor. Does the consent match the physician's order: Yes. Accurate & Complete Informed Consent: Yes. Inpatient/Outpatient History & Physical on Chart: Yes. If H&P is completed, is and addenduem needed: No; If yes, is the addendum complete: N/A. Visualize and Verify Site with Patient/Guarantor: N/A. Relevant Radiology Images available: N/A. The risks, benefits, and alternatives of sedation and/or procedure were discussed by physician. The patient agrees to continue. Procedure started. [facility] Clinical Fraility Score: 3: Managing Well. 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 Chest Pain Symptom Assessment: Typical Angina Symptoms. Cardiovascular Instability: No. Correct patient, site and procedure confirmed by cath team. PERRLA. Strong, equal hand sampler ovens bilaterally. Lungs clear x 5 lobes. IV Site on Arrival: 20 gauge in the right anticubital. IV Fluids: 0.9% NaCl at KVO. 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 Pre Procedural Pulses: bilateral dorsalis pedis was 1+. Pre Procedural Pulses: bilateral posterior tibial was 1+. Pre Procedural Pulses: bilateral radial was 3+. Oxygen started at 2liters/min via nasal canula. bilateral groins was prepped with chloroprep then draped in the usual sterile fashion. Physician notified. Baseline sample Acquired. HR: 54 BPM. Physician arrived. Physician scrubbed in. Immediate Pre-Procedure Time Out. Correct Patient: Yes; Correct Procedure: Yes; Correct Site: Yes; Correct Patient Position: Yes; Correct Supplies: Yes; Dried Flammable Prep: Yes; Blood Products Available: N/A;. Lidocaine 1% infiltrated to the right groin. Arterial access obtained with micropuncture set. A 5 ivorian JL4 catheter in over wire. Catheter out. A 5 ivorian AL2 catheter in over wire. Catheter out. A 5 ivorian JL3.5 catheter in over wire. Multiple views taken of left coronary artery. Catheter out. A 5 ivorian JR4 catheter in over wire. Views taken of mary's igloo right coronary artery. Catheter out. A 5 ivorian RCB catheter in over wire. SVG to RCA occluded. Physician review of old films. Catheter out. A 5 ivorian AR1 catheter in over wire. SVG to RCA occluded. Catheter out. Wire out. A Suture was successful obtaining hemostatsis at the Right Femoral artery insertion site. Dr Henriquez called. Doctors reviewing films. PERRLA. Strong, equal hand sampler ovens bilaterally. No VTE prophylaxis required. Medication's Wasted: Lidocaine 1% = 1 mL. Medication's Wasted: Heparin = 2500 units. Medication's Wasted: Other = Fentanyl 75 mL. Total IV fluids: 301 mL. Post-op diagnosis: occluded graft to the RCA. Complications: none. Estimated blood loss: 5mL-10mL. Responsiveness - Normal response to verbal stimuli; alert and oriented, PERRLA. Airway - Unaffected, no intervention required; spontaneous ventilation. Circulation: W/N/L, pulses unchanged. Nausea/Vomiting: No. Procedure completed. Patient transferred by bed to CPRU. Vital chart was stopped. Access Site Site: Right Femoral artery Sheath Size: 5 Fr Hemostasis Method: Suture Hemostasis Success: Successful Procedure Medications Start: 7:33 AM Stop: 7:33 AM Medication: Versed 1 mg and Fentanyl 25 mcg Amount: 1 Route: I.V. Start: 7:42 AM Stop: 7:42 AM Medication: Heparin Amount: 1500 units Route: I.V. Start: 7:43 AM Stop: 7:43 AM Medication: 0.9% Saline Amount: 250 ml Route: I.V. bolus Start: 7:47 AM Stop: 7:47 AM Medication: Versed Amount: 1 mg Route: I.V. I, the attending physician, have reviewed and verified all procedure medications. Yes, all medications given per verbal order History/Risk Factors Hypertension: Yes Dyslipidemia: Yes Peripheral Arterial Disease (PAD): Yes Myocardial Infarction (AZ): No Obesity: No Tobacco Use: Former Prior Interventions PCI: Yes CABG: Yes Valve Surgery: No Report Signatures Finalized by Dr Tiago Ramírez MD [facility] on 12/05/2022 06:25 PM
[2022-12-05] MEDS: diphenhydrAMINE 50 mg Capsule PO (06:45)
[2022-12-05 06:55] LABS: Blood Urea Nitrogen 18 mg/dL (8-23); Calcium 9.3 mg/dL (8.5-10.5); Carbon Dioxide 26 mmol/L (22-29); Chloride 96 mmol/L (98-107); Glucose 124 mg/dL (65-115); Osmolality Calculated 279 mOsm/kg (285-295); Sodium 133 mmol/L (136-145)
--- NOTE | 2022-12-05 07:01 | P.HP_ITS ---
Providers/Chief Complaint Admitting Physician: Amando Ramírez MD Primary Care Provider: Jonah Barajas DO Chief Complaint: Chest pain History of Present Illness Soy Lee is a 72 year old male history of atherosclerotic heart disease, high blood pressure, dyslipidemia, peripheral artery disease and carotid artery disease, is presenting with complaints of recurrent episodes of chest pains. He had a Myocardial perfusion imaging which was found to be abnormal. He is here for elective cardiac catheterization to decide on further management. Review of Systems General: Reports: 10 or more systems reviewed and unremarkable except in HPI and below Narrative: CONSTITUTIONAL: No fever or chills. EYES: No blurring of vision or other visual disturbances lately. ENT: No hoarseness of voice, auditory disturbances or sore throat. CARDIOVASCULAR: As mentioned above. RESPIRATORY: No significant cough. GASTROINTESTINAL: No hematemesis or melena. GENITOURINARY: No dysuria or hematuria. INTEGUMENTARY: No skin rashes or history of skin cancer. NEURO: No transient ischemic attacks or amaurosis. PSYCHIATRIC: No history of psychosis or major depression. HEMATOLOGIC: No bleeding disorders or significant anemia. ENDOCRINE: No history of polyuria or polydipsia. MUSCULOSKELETAL: No recent joint pain or swelling. ALLERGY/IMMUNOLOGY: As mentioned above. Medications/Allergies Home Medications Medication Instructions Recorded Confirmed Last Taken Type albuterol sulfate 90 mcg/actuation 2 puff inhalation Q6H PRN 09/16/19 12/05/22 10/07/19 05:00 History aerosol inhaler (ProAir HFA) Shortness Of Breath eplerenone 25 mg tablet (Inspra) 25 mg PO BID 09/16/19 12/05/22 12/05/22 05:20 History nitroglycerin 0.4 mg sublingual 0.4 mg sublingual Q5M PRN Chest 09/16/1911/17 Unknown History tablet (Nitrostat) Pain pravastatin 40 mg tablet 40 mg PO QDAY 09/16/19 12/05/22 12/05/22 05:20 History vitamin B complex (Super B-50 1 cap PO QDAY 09/16/19 12/05/22 12/05/22 05:20 History Complex capsule) folic acid 400 mcg tablet 1,000 mg PO QDAY 06/13/20 12/05/22 12/05/22 05:20 History cetirizine 10 mg tablet 10 mg PO DAILY PRN Allergic 10/05/20 12/05/22 12/05/22 05:20 History Symptoms montelukast 10 mg tablet 10 mg PO QDAY PRN Allergic Symptoms 04/02/21 12/05/22 12/05/22 05:20 History (Singulair) metformin 1,000 mg tablet 1,000 mg PO BID 11/21/21 12/05/22 12/03/22 08:00 History tamsulosin 0.4 mg capsule See Rx Instructions .Route 11/27/21 12/05/22 12/05/22 05:20 Rx .COMPLEX #180 caps finasteride 5 mg tablet 5 mg PO QDAY #90 tabs 12/18/21 12/05/22 12/05/22 05:20 Rx carvedilol 25 mg tablet 25 mg PO BID #180 tabs 01/28/22 12/05/22 12/05/22 05:20 Rx tramadol 50 mg tablet ea PO 01/29/22 11/22/22 12/05/22 05:20 History dapagliflozin 10 mg tablet 10 mg PO DAILY #90 tabs 04/01/22 12/05/22 12/05/22 05:20 Rx (Farxiga) baclofen 10 mg tablet 10 mg PO DAILY 04/10/22 12/05/22 12/05/22 05:20 History fluticasone 250 mcg-salmeterol 50 1 inh inhalation BID 04/10/22 12/05/22 12/05/22 05:20 History mcg/dose blistr powdr for inhalation (Advair Diskus) gabapentin 300 mg capsule 600 mg PO .qpm 04/10/22 12/05/22 12/05/22 05:20 History insulin glargine 100 unit/mL 20 unit SUBCUT .HS 04/10/22 12/05/22 12/04/22 20:00 History subcutaneous solution (Lantus U-100 Insulin) sertraline 100 mg tablet 100 mg PO DAILY 04/10/22 12/05/22 12/05/22 05:20 History testosterone 20.25 mg/1.25 gram 2 pump topical DAILY 04/10/22 12/05/22 12/05/22 05:20 History (1.62 %) transdermal gel pump zolpidem 10 mg tablet 10 mg PO .hs 04/10/22 12/05/22 12/05/22 05:20 History lisinopril 20 mg tablet 20 mg PO QDAY #90 tabs 04/18/22 12/05/22 12/05/22 05:20 Rx amlodipine 10 mg tablet 10 mg PO DAILY #90 tabs 07/19/22 12/05/22 12/05/22 05:20 Rx clopidogrel 75 mg tablet 75 mg PO QDAY #90 tabs 07/30/22 12/05/22 12/05/22 05:20 Rx hydrochlorothiazide 25 mg tablet 25 mg PO DAILY #90 tabs 09/26/22 12/05/22 12/05/22 05:20 Rx isosorbide mononitrate 60 mg See Rx Instructions .Route 09/27/22 12/05/22 12/05/22 05:20 Rx tablet,extended release 24 hr .COMPLEX #90 tabs Allergies Allergy/AdvReac Type Severity Reaction Status Date / Time atorvastatin [From Lipitor] Allergy Unknown Unknown Verified 11/22/22 08:05 cefaclor [From Ceclor] Allergy Unknown Unknown Verified 11/22/22 08:05 clindamycin [From Benzaclin] Allergy Unknown Unknown Verified 11/22/22 08:05 Penicillins Allergy Unknown Unknown Verified 11/22/22 08:05 levofloxacin [From Levaquin] Allergy Unknown Verified 11/22/22 08:05 PFSH Acute PFSH: Medical History ASHD (arteriosclerotic heart disease) BPH w/o urinary obs/LUTS 2019 post op. Recovered well with temp SCIC. BPH treated with TAMSULOSIN DD Carotid stenosis, bilateral Diabetes FH: total knee replacement GERD (gastroesophageal reflux disease) HTN (hypertension) Hyperlipidemia Occlusion of left femoropopliteal bypass graft PAD (peripheral artery disease) Prostate cancer screening Sleep apnea Urinary retention Surgical History Hx of right knee surgery S/P angioplasty with stent S/P appendectomy S/P CABG (coronary artery bypass graft) S/P femoral-femoral bypass surgery S/P tonsillectomy Family History Father , AGE 83 CAD (coronary artery disease) Chronic kidney disease (CKD) Dementia Grandmother CAD (coronary artery disease) Diabetes Stroke Mother , AT AGE 90 CHF (congestive heart failure) Other Hypertension Denies family history of Clotting disorder Suicide Anesthesia complication Bleeding disorder Lung disease Cancer Social History Smoking and tobacco status: former smoker Alcohol intake: current Alcohol intake frequency: holidays/special occasions only Alcohol type: beer Household members: spouse Marital status: Current occupational status: retired Current gender identity: Male Crystal/Amish: Protestant Vitals/I&O/Wt Last Vital Signs O2 Del Method Room Air 12/05/22 06:00 Weight last 48 hrs Weight 207 lb Physical Exam Narrative: GENERAL: The patient is alert and oriented times three. Not in any acute distres s. HEENT: No significant pallor, icterus or lymphadenopathy.Oral cavity: There are no mucous membrane lesions. NECK: Trachea appears to be central. No masses noted. No JVD or thyromegaly appreciated. RESPIRATORY: Chest is symmetrical. No intercostals muscle retraction or any accessory muscle activation. There is no chest wall tenderness. Breath sounds are heard bilaterally. No rales or rhonchi heard. No evidence of any consolidation. BREASTS: Deferred. HEART: The heart sounds are normal. No S3 or S4. Short systolic murmur in the mitral area.. No pericardial rub ABDOMEN: No vessel pulsations or distention. No tenderness. No organomegaly appreciated. Bowel sounds are normally heard. : Deferred. RECTAL: Deferred. LYMPHATIC: No lymphadenopathy noted in the neck or groin. EXTREMITIES: No edema or cyanosis. No clubbing. Peripheral pulses are palpated in fairly good volume and amplitude MUSCULOSKELETAL: No acute joint deformities or swelling SKIN: There are no significant scars or skin rash noted. NEUROPSYCHIATRIC: The patient is alert and oriented x3. Appears to be in a good mood. No tremors or rigidity noted. Data 12/05/22 06:19 Other Labs: Laboratory Last Values Sodium 133 mmol/L (136-145) L 12/05/22 06:19 Potassium 4.0 mmol/L (3.5-5.1) 12/05/22 06:19 Chloride 96 mmol/L (98-107) L 12/05/22 06:19 Carbon Dioxide 26 mmol/L (22-29) 12/05/22 06:19 Anion Gap 15.0 (5-19) 12/05/22 06:19 BUN 18 mg/dL (8-23) 12/05/22 06:19 Creatinine 0.8 mg/dL (0.7-1.2) 12/05/22 06:19 GFR Calculation Not Reportable 12/05/22 06:19 Glucose 124 mg/dL (65-115) H 12/05/22 06:19 Calculated Osmolality 279 mOsm/kg (285-295) L 12/05/22 06:19 Calcium 9.3 mg/dL (8.5-10.5) 12/05/22 06:19 Other data: 1..? Myocardial perfusion imaging revealing moderate area of reversible defect ?in the inferior, inferolateral lateral, anterolateral and apical regions ?suggesting ischemia in the distribution of all the 3 coronary arteries, most of ?the left circumflex artery and right coronary artery with some involvement of ?the left and descending artery as well. ?2.? Normal LV ejection fraction 72%. ?3.? LV wall motion analysis revealing no gross wall motion abnormalities. ?4.? Normal LV volume ?Compared to the previous study from 05/29/2018, the ischemia appears to be more ?in the apical segments on the current study A&P Assessment and plan (1) Abnormal myocardial perfusion study: The Myocardial perfusion imaging findings are as mentioned above. Implications were discussed with the patient. Noted to further evaluate his coronary status as well as the graft status, he requires a cardiac catheterization. The risk and benefits were discussed with the patient. The risk of bleeding, hematoma, vascular injury, myocardial infarction, myocardial perforation, malignant cardiac arrhythmias ,CVA, renal failure and other concomitant complications were explained in detail. Patient and his family understood this well and consented to proceed. (2) PAD (peripheral artery disease): Clinically seems to be stable. (3) HTN (hypertension): Currently the blood pressure is minimally elevated. We will continue on the current medications. Qualifiers: Hypertension type: essential hypertension Qualified Code(s): I10 - Essential (primary) hypertension (4) Diabetes: The blood sugar seems to be fairly under control. 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 The venous graft to the right coronary artery was patent at that time. He had a PCI of the LAD. (6) Carotid stenosis, bilateral: Patient currently has no specific symptoms of carotid insufficiency. We will continue on the current treatment measures. (7) Hyperlipidemia: May continue on the current measures. Qualifiers: Hyperlipidemia type: mixed hyperlipidemia Qualified Code(s): E78.2 - Mixed hyperlipidemia Plan Based on the results of the above tests and the patient's clinical progress, further recommendations will be made. Attestations Medical Necessity Statement*: Patient may require overnight stay, if he requires coronary intervention. 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
[2022-12-05 07:12] LABS: Glucose Point of Care 140 mg/dL (70-110)
--- NOTE | 2022-12-05 07:23 | P.HPUD_ITS ---
Surgery/Procedure H&P Update DATE OF PROCEDURE: December 05, 2022 DATE H&P PERFORMED: 12/05/22 H&P UPDATE INFORMATION: I have reviewed H&P completed within last 30 days, I have examined patient prior to procedure and No changes to prior documentation PREOP DIAGNOSIS: ASHD PRIMARY INDICATION FOR PROCEDURE: ASHD, status post PCI, status post single-vessel coronary artery bypass surgery, abnormal Myocardial perfusion imaging PLANNED PROCEDURE: Operation Date: 12/05/22 07:00 Proposed Procedures p [facility] w/wo [id number],R94.39,I25.10, Z95.1, Z95.820(Left) - Tiago Ramírez MD PATIENT REASSESSED PRIOR TO SEDATION, WITH NO CHANGE NOTED: Yes PHYSICAL EXAM: alert, oriented x 3, clear to auscultation bilaterally and regular rate & rhythm AIRWAY EVAL/ANESTHESIA PLAN: normal airway, see other exam findings, ASA III, Monitored Anesthesia, Local Anesthesia, Risks, benefits & alternatives of sedation and/or procedure discussed and Patient agrees to continue as planned
--- NOTE | 2022-12-05 14:16 | PC.NURSE ---
0930: Removed sheath from patients right groin, held pressure 20 minutes. No drainage or hematoma noted, dressed site with 4x4 gauze and tegaderm. Vitals stable, no c/o pain or discomfort. Will continue to moniter closely. 1420: Transfer orders received. Dsg on right groin clean, dry, et intact. No drainage or hematoma noted. Vitals stable, no c/o pain or discomfort. Report given to AUDIE Jimenes.
== END 2022-12-05 16:34 | disposition home or self-care (01) ==
LOC: CCL 07:03 → CSU 16:35
PROVIDERS: PCP Internal Medicine; Visit Provider Internal Medicine Cardiovascular Disease
DX: R07.9 Chest pain, unspecified (principal); R94.39 Abnormal result of other cardiovascular function study; I73.9 Peripheral vascular disease, unspecified; I10 Essential (primary) hypertension; I25.10 Atherosclerotic heart disease of native coronary artery without angina pectoris; Z79.84 Long term (current) use of oral hypoglycemic drugs; Z79.891 Long term (current) use of opiate analgesic; Z79.02 Long term (current) use of antithrombotics/antiplatelets; Z79.4 Long term (current) use of insulin; I65.23 Occlusion and stenosis of bilateral carotid arteries; K21.9 Gastro-esophageal reflux disease without esophagitis; G47.30 Sleep apnea, unspecified; Z87.891 Personal history of nicotine dependence; E78.2 Mixed hyperlipidemia; Z95.820 Peripheral vascular angioplasty status with implants and grafts; Z95.1 Presence of aortocoronary bypass graft
CPT/HCPCS: 36415; 36416; 80048; 82962; 93455; 96361; 96365; 96367; 99152; 99153; C1769; C1887; C1894; G0378; J1644; J2250; J3010; J3490; J7030; Q0163; Q9967

== ENCOUNTER → 2022-12-10 14:24 | Outpatient (BNVA) | payer MEDICARE, SELFPAY | PROVIDERS: PCP Internal Medicine; Visit Provider Nurse Practitioner Family | DX: I25.10 Atherosclerotic heart disease of native coronary artery without angina pectoris (principal); Z87.891 Personal history of nicotine dependence; I10 Essential (primary) hypertension | CPT/HCPCS: 36415; 80048; 99214 ==

== ENCOUNTER → 2023-04-02 14:58 | Outpatient (BNVA) | payer MEDICARE, SELFPAY | PROVIDERS: PCP Internal Medicine; Visit Provider Dermatology | DX: L98.8 Other specified disorders of the skin and subcutaneous tissue (principal); L57.0 Actinic keratosis; L82.1 Other seborrheic keratosis; D18.01 Hemangioma of skin and subcutaneous tissue; Z87.891 Personal history of nicotine dependence; L81.4 Other melanin hyperpigmentation | CPT/HCPCS: 17000; 17003; 99213 ==

== ENCOUNTER → 2023-04-29 13:51 | Outpatient (BNVA) | payer MEDICARE, SELFPAY | PROVIDERS: PCP Internal Medicine; Visit Provider Internal Medicine Cardiovascular Disease | DX: I25.10 Atherosclerotic heart disease of native coronary artery without angina pectoris (principal); E78.2 Mixed hyperlipidemia; E11.65 Type 2 diabetes mellitus with hyperglycemia; Z79.4 Long term (current) use of insulin; I10 Essential (primary) hypertension; I73.9 Peripheral vascular disease, unspecified; I65.23 Occlusion and stenosis of bilateral carotid arteries; Z87.891 Personal history of nicotine dependence; Z95.1 Presence of aortocoronary bypass graft | CPT/HCPCS: 99214 ==

== ENCOUNTER 2023-09-03 14:48 | Outpatient (CLI) | payer MEDICARE, SELFPAY ==
--- NOTE | 2023-09-03 14:59 | CT_ITS ---
WS: [id number] CT NECK TECHNIQUE: Contrast-enhanced CT of the neck with coronal and sagittal reformatted images. CLINICAL INFORMATION: OTALGIA, UNSPECIFIED EAR COMPARISON: None. DLP: 235.[address] scans at [facility] use at least one of these dose optimization techniques: automated e xposure control; mA and/or kV adjustment per patient size (includes targeted exams where dose is matc hed to clinical indication); or iterative reconstruction. FINDINGS: Paranasal sinuses are well aerated. Mastoid air cells are well aerated. Normal posterior nasopharynx. Normal parapharyngeal fat. Dental artifact degrades some images at the tongue base. Parotid glands a nd submandibular glands are normal. No cervical lymphadenopathy. Lung apices are well aerated. Aortic calcification. Prior sternotomy. Normal thyroid. No cervical lymphadenopathy. Straightening of the normal cervical lordosis with moderate spondylitic changes cervical spine. Veena l epiglottis. Normal piriform sinuses. Medial deviation of the RIGHT vocal cord with ballooning of th e RIGHT laryngeal ventricle. Medial rotation RIGHT arytenoid cartilage. Subglottic airway is patent. IMPRESSION: 1. Normal salivary glands. 2. Evidence of RIGHT vocal cord paralysis. Recommend direct visualization. 3. No evidence of supraglottic or glottic mass. Normal subglottic airway. 4. No cervical lymphadenopathy. 5. Visualized paranasal sinuses are well aerated. Mastoid air cells are well aerated. 6. Mild central canal stenosis in the mid cervical spine with moderate spondylitic changes. 7. Moderate bilateral carotid bulb calcification with ICA stenosis. Recommend further evaluation wit h ultrasound or neck CTA.
[2023-09-03] MEDS: iohexol 350 mg/mL 500 mL Btl (per mL) IV (15:28)
== END 2023-09-03 14:49 | disposition home or self-care (01) ==
LOC: RAD 14:49
PROVIDERS: PCP Internal Medicine; Visit Provider Specialist
DX: H92.09 Otalgia, unspecified ear (principal); J38.01 Paralysis of vocal cords and larynx, unilateral; M48.02 Spinal stenosis, cervical region; M47.812 Spondylosis without myelopathy or radiculopathy, cervical region; I65.23 Occlusion and stenosis of bilateral carotid arteries
CPT/HCPCS: 70491; Q9967

== ENCOUNTER → 2023-11-05 13:48 | Outpatient (BNVA) | payer MEDICARE, SELFPAY | PROVIDERS: PCP Internal Medicine; Visit Provider Internal Medicine Cardiovascular Disease | DX: R06.09 Other forms of dyspnea (principal); I25.10 Atherosclerotic heart disease of native coronary artery without angina pectoris; E78.2 Mixed hyperlipidemia; I73.9 Peripheral vascular disease, unspecified; I10 Essential (primary) hypertension; I65.23 Occlusion and stenosis of bilateral carotid arteries; Z87.891 Personal history of nicotine dependence | CPT/HCPCS: 99214 ==

== ENCOUNTER 2023-11-07 08:05 | Outpatient (CLI) | payer MEDICARE, SELFPAY ==
--- NOTE | 2023-11-07 08:30 | USCV_ITS ---
Soy Lee Age: 73 Gender: M : 1950 Exam Date: 11/07/2023 08:19 Ordering Phys: Tiago Ramírez MD ([email or web address]) Technologist: SHARON [place]am [place] [facility] [place]ication: PAD. Prior LT LE femoral bypass graft Risk Factors: Previous Vascular Surgery: RIGHT LEFT BP: 144.0 / 69.00 BP: 140.0/ 72.00 0 0 Waveform Velocity (cm/s) Velocity (cm/s) Waveform Triphasic 40.3 Iliac Prox 84.6 Biphasic Triphasic 75.0 Iliac Mid 113.9 Biphasic Triphasic 102.4 Iliac Distal 110.3 Biphasic Biphasic 148.0 SUPERVISOR DRY CELL ASSEMBLY 67.0 Biphasic Monophasic 61.0 SFA Prox 38.0 Biphasic Monophasic 73.0 SFA Mid 42.0 Biphasic Monophasic 106.0 SFA Dist 52.0 Biphasic Monophasic 239.0 POP 86.0 Biphasic Monophasic 10.0 CHASER APPRENTICE 44.0 Biphasic Monophasic 23.0 DPA 66.0 Biphasic 0.5 LORENA 0.8 FINDINGS LT Bypass graft. Graft PS velocities recorded RT CHASER APPRENTICE unatainable Resting LORENA 0.5 on the right and 0.8 on the left Moderately heavy diffuse plaques in the iliac, femoral and popliteal arteries on the right side. Markedly diminished Doppler velocities in the infrapopliteal vessels on the right side No flow was detected in the superficial femoral artery on the left side Patent femoral-popliteal bypass graft CONCLUSIONS 1. Abnormal resting LORENA of 0.5 on the right side, since you have moderately severe peripheral artery disease, mostly involving the infrapopliteal vessels. 2. Total occlusion of the superficial femoral artery on the left side with patent femoral-popliteal bypass graft. Resting LORENA 0.8 on the left side suggesting mild peripheral artery disease Compared to the study from 10/30/2021, slight worsening of the disease on the right side Dr Tiago Ramírez MD [facility] (Electronically Signed) Final Date: 07 November 2023 17:23 S
== END 2023-11-07 08:06 | disposition home or self-care (01) ==
LOC: RAD 08:06
PROVIDERS: PCP Internal Medicine; Visit Provider Internal Medicine Cardiovascular Disease
DX: I73.9 Peripheral vascular disease, unspecified (principal); I77.1 Stricture of artery
CPT/HCPCS: 93925

== ENCOUNTER → 2023-12-23 14:40 | Outpatient (BNVA) | payer MEDICARE, SELFPAY | PROVIDERS: PCP Internal Medicine; Visit Provider Nurse Practitioner Family | DX: L57.0 Actinic keratosis (principal); L98.8 Other specified disorders of the skin and subcutaneous tissue; L82.1 Other seborrheic keratosis; D18.01 Hemangioma of skin and subcutaneous tissue; L81.4 Other melanin hyperpigmentation | CPT/HCPCS: 17000; 99213 ==

== ENCOUNTER → 2023-12-25 10:12 | Outpatient (BNVA) | payer MEDICARE, SELFPAY | PROVIDERS: PCP Internal Medicine; Visit Provider Nurse Practitioner Family | DX: I25.10 Atherosclerotic heart disease of native coronary artery without angina pectoris (principal); I10 Essential (primary) hypertension; I73.9 Peripheral vascular disease, unspecified; Z87.891 Personal history of nicotine dependence; I44.0 Atrioventricular block, first degree | CPT/HCPCS: 36415; 80048; 83880; 93005; 99214 ==

== ENCOUNTER 2023-12-31 08:38 | Outpatient (CLI) | payer MEDICARE, SELFPAY ==
[2023-12-31 08:54] VITALS: BMI 30.5
--- NOTE | 2023-12-31 08:55 | NMCV_ITS ---
NM dannie perf SPECT r/s* [id number] Soy Lee Age: 73 Gender: M : 1950 Exam Date: 12/31/2023 09:43 Ordering Phys: Autumn Arguello Technologist: PORSHA Mcconnell Exam Location: [facility] Indications: ATHEROSCLEROTIC HEART DISEASE STRESS TEST Please see separate stress test report in Eph[facility]any for full findings IMAGE PROTOCOL Rest/Stress 1 Lexiscan Day Radiopharmaceutical Dose (mCi) Administration Site Administered by Rest: Tc-99m 10.6 IV PORSHA Sosa Sestamibi Stress:Tc-99m 32.8 IV PORSHA Sosa Sestamibi Rest: 31-Dec-2023 60 Discovery 630 Stress: 31-Dec-2023 30 Discovery 630 0.4mg Lexiscan. Images obtained in supine and prone position. SPECT RESULTS Technical Quality: Excellent Raw Data Analysis: Normal Image Corrections: No attenuation or motion correction applied Summed Stress Score: 5 Summed Rest Score: 1 Summed Difference Score: 4 PERFUSION FINDINGS There is a medium to large sized, mostly reversible perfusion defect noted in the inferior and inferolateral lopez. This is consistent with small area of prior infarct with medium to large sized area of tere-infarct ischemia in the RCA and left circumflex artery territory. FUNCTIONAL RESULTS (calculated via Gated SPECT) Stress Image LV EF (%): 57 Stress EDV (mL):88 TID: 0.98 Stress ESV (mL):38 FUNCTIONAL FINDINGS: There is normal left ventricular systolic function. IMPRESSIONS 1. Abnormal myocardial perfusion imaging with small area of prior infarct with medium to large sized area of tere-infarct ischemia seen in RCA and left circumflex artery territories. 2. LV systolic function is normal. Jagjit Louie MD (Electronically Signed) Final Date: 31 Dec 2023 11:53 S
--- NOTE | 2023-12-31 08:55 | ECG_ITS ---
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 Interpretive Statements NAME OF STUDY: LEXISCAN SESTAMIBI STRESS TEST INDICATION: [Chest Pain, ] Procedure: At the baseline, the blood pressure was 151/75 mmHg with a heart rate of 67 bpm. The electrocardiogram showed normal sinus rhythm, normal axis with normal ST and T's. The Lexiscan was infused over a period of 20 seconds. A total of 0.4 mg of Lexiscan was infused. The stress phase was continued for a total of 5 minutes. Heart rate was at the end of stress phase was 77 bpm and a blood pressure of 121/57 mmHg. The EKG at the peak infusion revealed normal sinus rhythm with no significant ST-T wave changes. Sestamibi was injected 20 seconds after the Lexiscan infusion. Blood pressure at the end of recovery phase was 111/56 mmHg with a heart rate of 75 bpm. Conclusion: 1. Normal EKG response to Lexiscan infusion 2. No Lexiscan induced chest pain or cardiac arrhythmia. 3. Normal blood pressure and heart rate response. 4. Sestamibi/sestamibi perfusion scan pending; see separate report. Electronically Signed On 01-06-2024 10:40:44 CDT by Jagjit Louie M.D. [id number]
[2023-12-31] MEDS: regadenoson 0.4 Mg/5 ml Syringe 0.400000000000000022 MG IVP (10:22)
[2023-12-31 10:33] VITALS: BP 111/56; PULSE 75
== END 2023-12-31 08:39 | disposition home or self-care (01) ==
PROVIDERS: PCP Internal Medicine; Visit Provider Nurse Practitioner Family
DX: I25.10 Atherosclerotic heart disease of native coronary artery without angina pectoris (principal); R94.39 Abnormal result of other cardiovascular function study; I25.2 Old myocardial infarction; I25.9 Chronic ischemic heart disease, unspecified
CPT/HCPCS: 36415; 78452; 93017; 96374; A9500; J2785

== ENCOUNTER 2024-03-30 13:45 | Outpatient (RCR) | payer MEDICARE, SELFPAY | END 2024-04-17 23:59 | disposition home or self-care (01) | LOC: CR 13:45 | PROVIDERS: PCP Internal Medicine; Referring Provider Student in an Organized Health Care Education/Training Program; Visit Provider Internal Medicine | DX: I25.10 Atherosclerotic heart disease of native coronary artery without angina pectoris (principal) | CPT/HCPCS: 93798 ==

== ENCOUNTER 2024-04-02 14:31 | Emergency (ER) | payer MEDICARE, SELFPAY ==
[2024-04-02 14:39] VITALS: BP 125/63; PULSE 76; RESP 20; TEMP 36.6; O2SAT 94; BMI 30.2
--- NOTE | 2024-04-02 15:26 | XRR_ITS ---
PROCEDURE INFORMATION: Exam: XR Chest Exam date and time: 04/02/2024 3:36 PM Age: 73 years old Clinical indication: Shortness of breath and other: Hypotension TECHNIQUE: Imaging protocol: Radiologic exam of the chest. Views: 1 view. COMPARISON: CR XR chest 2V* [id number] 02/02/2019 10:26 AM FINDINGS: Lungs: Unremarkable. No consolidation. Pleural spaces: Unremarkable. No pleural effusion. No pneumothorax. Heart/Mediastinum: Unremarkable. No cardiomegaly. Bones/joints: Unremarkable. XR/XR chest 1V portable [id number] IMPRESSION: No acute findings.
--- NOTE | 2024-04-02 15:27 | ECG_ITS ---
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
--- NOTE | 2024-04-02 15:31 | W.ED.DIZZY ---
HPI - Dizziness General: Chief Complaint: Dizziness Stated Complaint: sent to have iv fluids from heart care Time Seen by Provider: 04/02/24 15:00 History of Present Illness: HPI Narrative: 73-year-old male presents emergency department chief complaint of having episode of dizziness and hypotension just prior to arrival while at cardiac rehab he was noted to be 70s over 50s patient was told to go home drink more water when she returned his heart his blood pressure was low again patient Dors is he is status post 2 cardiac stents placed last month as well as a prior history open heart surgery he endorses he has not had any recent medication changes. He reports that he does not regularly take his blood pressure he reports no other associated symptoms. He reports that he was get the blood pressure checked at cardiac rehab he did feel somewhat fatigued and dizzy but demonstrated no other associated symptoms. Associated symptoms: Denies chest pain, chills, headache(s), malaise, nausea, palpitations or vomiting Related Data Home Medications Medication Instructions Recorded Confirmed albuterol sulfate 90 mcg/actuation 2 puff inhalation Q6H PRN 09/16/19 12/25/23 aerosol inhaler (ProAir HFA) Shortness Of Breath eplerenone 25 mg tablet (Inspra) 25 mg PO BID 09/16/19 12/25/23 pravastatin 40 mg tablet 40 mg PO QDAY 09/16/19 12/25/23 vitamin B complex (Super B-50 1 cap PO QDAY 09/16/19 12/25/23 Complex capsule) folic acid 400 mcg tablet 1,000 mg PO QDAY 06/13/20 12/25/23 cetirizine 10 mg tablet 10 mg PO DAILY PRN Allergic 10/05/20 12/25/23 Symptoms montelukast 10 mg tablet 10 mg PO QDAY PRN Allergic Symptoms 04/02/21 12/25/23 (Singulair) metformin 1,000 mg tablet 1,000 mg PO BID 11/21/21 12/25/23 baclofen 10 mg tablet 10 mg PO DAILY 04/10/22 12/25/23 fluticasone 250 mcg-salmeterol 50 1 inh inhalation BID 04/10/22 12/25/23 mcg/dose blistr powdr for inhalation (Advair Diskus) gabapentin 300 mg capsule 600 mg PO .qpm 04/10/22 12/25/23 insulin glargine 100 unit/mL 20 unit SUBCUT .HS 04/10/22 12/25/23 subcutaneous solution (Lantus U-100 Insulin) sertraline 100 mg tablet 100 mg PO DAILY 04/10/22 12/25/23 zolpidem 10 mg tablet 10 mg PO .hs 04/10/22 12/25/23 Previous Rx's Medication Instructions Recorded tamsulosin 0.4 mg capsule See Rx Instructions .Route 12/05/22 .COMPLEX #180 caps finasteride 5 mg tablet See Rx Instructions .Route 12/19/22 .COMPLEX #90 tabs dapagliflozin propanediol 10 mg See Rx Instructions .Route 04/02/23 tablet (Farxiga) .COMPLEX #90 tabs lisinopril 20 mg tablet 20 mg PO QDAY #90 tabs 04/22/23 carvedilol 25 mg tablet See Rx Instructions .Route 07/18/23 .COMPLEX #180 tabs amlodipine 10 mg tablet See Rx Instructions .Route 07/28/23 .COMPLEX #90 tabs hydrochlorothiazide 25 mg tablet See Rx Instructions .Route 09/25/23 .COMPLEX #90 tabs isosorbide mononitrate 60 mg See Rx Instructions .Route 10/08/23 tablet,extended release 24 hr .COMPLEX #90 tabs clopidogrel 75 mg tablet See Rx Instructions .Route 10/22/23 .COMPLEX #90 tabs nitroglycerin 0.4 mg sublingual 0.4 mg sublingual Q5M PRN Chest 01/28/24 tablet (Nitrostat) Pain #25 tabs Allergies Allergy/AdvReac Type Severity Reaction Status Date / Time atorvastatin [From Lipitor] Allergy Unknown Unknown Verified 04/02/24 14:48 cefaclor [From Ceclor] Allergy Unknown Unknown Verified 04/02/24 14:48 clindamycin [From Benzaclin] Allergy Unknown Unknown Verified 04/02/24 14:48 Penicillins Allergy Unknown Unknown Verified 04/02/24 14:48 levofloxacin [From Levaquin] Allergy Unknown Verified 04/02/24 14:48 Review of Systems General: Reports: 10 or more systems reviewed and unremarkable except in HPI and below Const: Denies: fever(s), chills, fatigue or malaise Eyes: Denies: change in vision or blurry vision Card: Denies: chest pain or palpitations Resp: Denies: dyspnea or productive cough GI: Denies: abdominal pain, nausea or vomiting : Denies: flank pain Musc: Denies: extremity pain or extremity swelling Skin/Breast: Denies: rash or pruritus Neuro: Reports: dizziness; Denies: headache(s) Psych: Denies: anxiety or depression Emile/Lymph: Denies: easy bleeding All/Imm: Denies: urticaria, throat swelling or facial swelling PFSH ED PFSH: Medical History FH: total knee replacement Prostate cancer screening BPH w/o urinary obs/LUTS 2019 post op. Recovered well with temp SCIC. BPH treated with TAMSULOSIN DD Urinary retention Occlusion of left femoropopliteal bypass graft Sleep apnea GERD (gastroesophageal reflux disease) ASHD (arteriosclerotic heart disease) Carotid stenosis, bilateral PAD (peripheral artery disease) HTN (hypertension) Diabetes Hyperlipidemia Surgical History Hx of right knee surgery S/P appendectomy S/P tonsillectomy S/P femoral-femoral bypass surgery S/P angioplasty with stent S/P CABG (coronary artery bypass graft) Family History Father , AGE 83 CAD (coronary artery disease) Chronic kidney disease (CKD) Dementia Grandmother CAD (coronary artery disease) Diabetes Stroke Mother , AT AGE 90 Congestive heart failure (CHF) Other Hypertension Denies family history of Clotting disorder Suicide Anesthesia complication Bleeding disorder Lung disease Cancer Social History Smoking and tobacco/nicotine status: former use of tobacco/nicotine Alcohol intake: current Alcohol intake frequency: holidays/special occasions only Alcohol type: beer Substance/Drug Use: never Household members: spouse Marital status: Current occupational status: retired Current gender identity: Male Crystal/Evangelical: Adventism Physical Exam Const: COMMON NORMALS: no acute distress, patient oriented x3 and healthy appearing HENMT: COMMON NORMALS: normocephalic and atraumatic HEAD & SCALP: normocephalic and atraumatic Eye: COMMON NORMALS: Equal, round and reactive pupils present and EOMs intact bilaterally PUPIL: Yes Equal, round and reactive pupils present Neck/C-Spine: COMMON NORMALS: full ROM, supple and no JVD Lymph: LYMPHATIC: no lymphadenopathy noted Chest: COMMONS NORMALS: normal inspection of the chest and normal palpation of entire chest wall Resp: COMMON NORMALS: normal respiratory effort, No retractions and clear to auscultation bilaterally EFFORT & INSPECTION: Yes able to speak in complete sentences and Yes symmetric chest movement AUSCULTATION: clear to auscultation bilaterally Cardio: COMMON NORMALS: no JVD, regular rate and regular rhythm RATE: regular rate RHYTHM: regular rhythm GI: COMMON NORMALS: Normal to inspection, nondistended, normoactive bowel sounds present, Soft to palpation and non-tender INSPECTION: Yes normal to inspection PALPATION: Yes Soft to palpation : COMMON NORMALS: Yes no CVA tenderness BLADDER/KIDNEY EXAM: Yes no CVA tenderness Back/Pelvis: COMMON NORMALS: no CVA tenderness Extremity: COMMON NORMALS: normal to inspection and full ROM Neuro: COMMON NORMALS: patient oriented x3, CN's II-XII intact bilaterally, moves all extremities and no focal motor deficits Psych: COMMON NORMALS: mental status grossly normal, Normal thought process present, cooperative and normal affect THOUGHT PROCESS: Normal thought process present Skin: COMMON NORMALS: no rashes or lesions noted GENERAL SKIN EXAM: no rashes or lesions noted Course Vital Signs: Vital signs: Vital Signs Temperature 97.9 F 04/02/24 14:39 Pulse Rate 67 04/02/24 17:20 Respiratory Rate 16 04/02/24 17:20 Blood Pressure 130/71 04/02/24 17:20 Pulse Oximetry 97 04/02/24 17:20 Oxygen Delivery Me thod Room Air 04/02/24 17:20 MDM - Dizziness Medical Decision Making Due to patient's symptoms and condition lab work and imaging will be obtained will continue follow-up patient is currently not hypotensive I suspect part of the patient's issues may be due to the patient having medication induced hypotension will continue to follow. No additional concerns of hypotension noted patient's 2-hour troponin eventually returned and came back also unremarkable patient is stable for discharge home advised further follow-up primary care or cardiology in the next 1 week for further evaluation to return the interim if any of his symptoms persist or worse. Lab Data 04/02/24 15:05 04/02/24 15:05 Radiology Impressions Chest X-Ray 04/02/24 15:26 IMPRESSION: No acute findings. Laboratory Results WBC 8.59 10^3/uL (3.29-11.43) 04/02/24 15:05 RBC 4.46 10^6/uL (3.85-5.65) 04/02/24 15:05 Hgb 14.10 g/dL (11.27-16.99) 04/02/24 15:05 Hct 41.3 % (37-53) 04/02/24 15:05 MCV 92.6 fl (82-101) 04/02/24 15:05 MCH 31.6 pg (27-33) 04/02/24 15:05 MCHC 34.1 g/dL (30-55) 04/02/24 15:05 RDW 13.0 % (12.1-15.1) 04/02/24 15:05 Plt Count 205 10^3/cmm (157-399) 04/02/24 15:05 MPV 10.2 fL (7.4-10.4) 04/02/24 15:05 Neut % (Auto) 58.0 % 04/02/24 15:05 Lymph % (Auto) 30.4 % 04/02/24 15:05 [place] % (Auto) 8.8 % 04/02/24 15:05 Eos % (Auto) 1.2 % 04/02/24 15:05 Baso % (Auto) 0.7 % 04/02/24 15:05 Neut # (Auto) 4.98 10^3/uL (1.8-7.7) 04/02/24 15:05 Lymph # (Auto) 2.6 10^3/uL (0.8-4.8) 04/02/24 15:05 [place] # (Auto) 0.8 10^3/uL (0.2-0.9) 04/02/24 15:05 Eos # (Auto) 0.1 10^3/uL (0.0-0.8) 04/02/24 15:05 Baso # (Auto) 0.1 10^3/uL (0.0-0.1) 04/02/24 15:05 Nucleated RBC % (auto) 0 % 04/02/24 15:05 Nucleated RBCs # 0.0 /100WBC 04/02/24 15:05 Sodium 133 mmol/L (136-145) L 04/02/24 15:05 Potassium 4.3 mmol/L (3.5-5.1) 04/02/24 15:05 Chloride 94 mmol/L (98-107) L 04/02/24 15:05 Carbon Dioxide 23 mmol/L (22-29) 04/02/24 15:05 Anion Gap 20.3 (5-19) H 04/02/24 15:05 BUN 25 mg/dL (8-23) H 04/02/24 15:05 Creatinine 1.1 mg/dL (0.7-1.2) 04/02/24 15:05 GFR Calculation Not Reportable 04/02/24 15:05 Glucose 162 mg/dL (65-115) H 04/02/24 15:05 Calculated Osmolality 284 mOsm/kg (285-295) L 04/02/24 15:05 Calcium 9.4 mg/dL (8.5-10.5) 04/02/24 15:05 Total Bilirubin 0.3 mg/dL (0.15-1.2) 04/02/24 15:05 AST 16 U/L (0-40) 04/02/24 15:05 ALT 15 U/L (0-41) 04/02/24 15:05 Alkaline Phosphatase 80 U/L (40-130) 04/02/24 15:05 Troponin T Baseline 22 ng/L (0-15) H 04/02/24 15:05 Troponin T 120 Minute 18.53 ng/L (0-15) H 04/02/24 17:16 Delta Troponin T -3.47 ABS# (0-10) L 04/02/24 17:16 C-Reactive Protein 3.0 mg/L (0.0-4.9) 04/02/24 15:05 NT-Pro-B Natriuret Pep < 36 pg/mL (0-125) 04/02/24 15:05 Total Protein 6.8 g/dL (6.6-8.7) 04/02/24 15:05 Albumin 4.5 g/dL (3.5-5.2) 04/02/24 15:05 Globulin 2.3 g/dL (1.3-4.6) 08/16/24 15:05 All radiology interpretation(s) finalized by discharge Discharge Plan Discharge Patient Disposition: Home Clinical Impression: Transient hypotension Condition: Stable Prescriptions: No Action cetirizine 10 mg tablet 10 mg PO DAILY PRN (Reason: Allergic Symptoms) albuterol sulfate [ProAir HFA] 90 mcg/actuation HFA aerosol inhaler 2 puff INHALATION Q6H PRN (Reason: Shortness Of Breath) vitamin B complex [Super B-50 Complex] Capsule 1 cap PO QDAY eplerenone [Inspra] 25 mg tablet 25 mg PO BID pravastatin 40 mg tablet 40 mg PO QDAY folic acid 400 mcg tablet 1,000 mg PO QDAY montelukast [Singulair] 10 mg tablet 10 mg PO QDAY PRN (Reason: Allergic Symptoms) metformin 1,000 mg tablet 1,000 mg PO BID Hold Instructions: Resume on 12/08/22. May restart on the Lantus U-100 Insulin 100 unit/mL solution 20 unit SUBCUT .HS sertraline 100 mg tablet 100 mg PO DAILY zolpidem 10 mg tablet 10 mg PO .hs gabapentin 300 mg capsule 600 mg PO .qpm baclofen 10 mg tablet 10 mg PO DAILY fluticasone propion-salmeterol [Advair Diskus] 250-50 mcg/dose blister with device 1 inh inhalation BID tamsulosin 0.4 mg capsule See Rx Instructions .ROUTE .COMPLEX Qty: 180 3RF Dose Instruction: TAKE 1 CAPSULE BY MOUTH TWO TIMES DAILY Rx Instructions: TAKE 1 CAPSULE BY MOUTH TWO TIMES DAILY finasteride 5 mg tablet See Rx Instructions .ROUTE .COMPLEX Qty: 90 3RF Dose Instruction: TAKE 1 TABLET BY MOUTH EVERY DAY Rx Instructions: TAKE 1 TABLET BY MOUTH EVERY DAY Farxiga 10 mg tablet See Rx Instructions .ROUTE .COMPLEX Qty: 90 3RF Dose Instruction: TAKE 1 TABLET BY MOUTH EVERY DAY Rx Instructions: TAKE 1 TABLET BY MOUTH EVERY DAY lisinopril 20 mg tablet 20 mg PO QDAY Qty: 90 3RF carvedilol 25 mg tablet See Rx Instructions .ROUTE .COMPLEX Qty: 180 3RF Dose Instruction: TAKE 1 TABLET BY MOUTH TWO TIMES DAILY Rx Instructions: TAKE 1 TABLET BY MOUTH TWO TIMES DAILY amlodipine 10 mg tablet See Rx Instructions .ROUTE .COMPLEX Qty: 90 3RF Dose Instruction: TAKE ONE TABLET BY MOUTH EVERY DAY Rx Instructions: TAKE ONE TABLET BY MOUTH EVERY DAY hydrochlorothiazide 25 mg tablet See Rx Instructions .ROUTE .COMPLEX Qty: 90 3RF Dose Instruction: TAKE 1 TABLET BY MOUTH EVERY DAY *replaces chlorthalidone* Rx Instructions: TAKE 1 TABLET BY MOUTH EVERY DAY *replaces chlorthalidone* isosorbide mononitrate 60 mg tablet extended release 24 hr See Rx Instructions .ROUTE .COMPLEX Qty: 90 3RF Dose Instruction: TAKE 1 TABLET BY MOUTH EVERY MORNING Rx Instructions: TAKE 1 TABLET BY MOUTH EVERY MORNING clopidogrel 75 mg tablet See Rx Instructions .ROUTE .COMPLEX Qty: 90 3RF Dose Instruction: TAKE ONE TABLET BY MOUTH EVERY DAY Rx Instructions: TAKE ONE TABLET BY MOUTH EVERY DAY nitroglycerin [Nitrostat] 0.4 mg tablet, sublingual 0.4 mg SUBLINGUAL Q5M PRN (Reason: Chest Pain) Qty: 25 2RF Discharge Orders: Discharge ED (Routine); Ordered 04/02/24 Ordered By: Soy Vail Referrals: Jonah Barajas DO [Primary Care Provider] - 4-7 days Discharge Diet: Advance as tolerated Discharge Activity: Increase activity as tolerated Patient Instructions: Hypotension (ED) Activity Restrictions/Additional Instructions: Drink plenty of please further follow-up with your primary care doctor or stick roller for further investigation your medication regimen appears to be causing medication induced please take your blood pressure in the morning after taking her medications as well as 1 other times randomly throughout the day please provide this information to your doctor for further evaluation management make sure that you drink plenty of fluids as dehydration can contribute to hypotension please return the interim if any of your symptoms persist or worse. Coding Level of Care Code ED Regional Loss Prevention Manager for Ebony Mishra
[2024-04-02] MEDS: sodium chloride 0.9% 1,000 ML 999 ML IV (15:40)
[2024-04-02 15:44] LABS: Basophils # 0.1 10^3/uL (0.0-0.1); Basophils % 0.7 %; Eosinophils # 0.1 10^3/uL (0.0-0.8); Eosinophils % 1.2 %; Hematocrit 41.3 % (37-53); Lymphocytes # 2.6 10^3/uL (0.8-4.8); Lymphocytes % 30.4 %; Mean Corpuscular HGB Conc 34.1 g/dL (30-55); Mean Corpuscular Hemoglobin 31.6 pg (27-33); Mean Corpuscular Volume 92.6 fl (82-101); Mean Platelet Volume 10.2 fL (7.4-10.4); Monocytes # 0.8 10^3/uL (0.2-0.9); Monocytes % 8.8 %; Neutrophils # 4.98 10^3/uL (1.8-7.7); Nucleated Red Blood Cells % 0 %; Platelet Count 205 10^3/cmm (157-399); Red Blood Count 4.46 10^6/uL (3.85-5.65); White Blood Count 8.59 10^3/uL (3.29-11.43)
[2024-04-02 16:10] LABS: Troponin(5th) Baseline 22 ng/L (0-15)
[2024-04-02 16:17] LABS: Alanine Aminotransferase 15 U/L (0-41); Albumin Level 4.5 g/dL (3.5-5.2); Alkaline Phosphatase 80 U/L (40-130); Aspartate Amino Transferase 16 U/L (0-40); Blood Urea Nitrogen 25 mg/dL (8-23); Calcium 9.4 mg/dL (8.5-10.5); Carbon Dioxide 23 mmol/L (22-29); Chloride 94 mmol/L (98-107); Creatinine Clr Calc Pharmacy 64.2883; Globulin 2.3 g/dL (1.3-4.6); Glucose 162 mg/dL (65-115); NT Pro B Type Natriuretic Pept < 36 pg/mL (0-125); Osmolality Calculated 284 mOsm/kg (285-295); Sodium 133 mmol/L (136-145); Total Bilirubin 0.3 mg/dL (0.15-1.2); Total Protein 6.8 g/dL (6.6-8.7)
[2024-04-02 16:34] LABS: Anion Gap 20.3 (5-19); Potassium 4.3 mmol/L (3.5-5.1)
[2024-04-02 17:20] VITALS: BP 130/71; PULSE 67; RESP 16; O2SAT 97
[2024-04-02 17:50] LABS: Troponin 5 2HR 18.53 ng/L (0-15)
[2024-04-02 17:55] LABS: Troponin 5 2HR Delta -3.47 ABS# (0-10)
[2024-04-02 18:54] VITALS: BP 132/69; PULSE 70; RESP 16; O2SAT 99
== END 2024-04-02 19:03 | disposition home or self-care (01) ==
PROVIDERS: Emergency Provider Emergency Medicine; PCP Internal Medicine
DX: I95.89 Other hypotension (principal); Z79.84 Long term (current) use of oral hypoglycemic drugs; Z79.4 Long term (current) use of insulin; Z79.02 Long term (current) use of antithrombotics/antiplatelets; Z87.891 Personal history of nicotine dependence; Z95.1 Presence of aortocoronary bypass graft; I10 Essential (primary) hypertension; E11.9 Type 2 diabetes mellitus without complications; E78.5 Hyperlipidemia, unspecified
CPT/HCPCS: 36415; 71045; 80053; 83880; 84484; 85025; 86140; 93005; 99285; J7030

== ENCOUNTER 2024-04-18 09:15 | Outpatient (RCR) | payer MEDICARE, SELFPAY | END 2024-05-17 23:59 | disposition home or self-care (01) | LOC: CR 09:15 | PROVIDERS: PCP Internal Medicine; Referring Provider Student in an Organized Health Care Education/Training Program; Visit Provider Internal Medicine | DX: I25.10 Atherosclerotic heart disease of native coronary artery without angina pectoris (principal) | CPT/HCPCS: 93798 ==

== ENCOUNTER 2024-05-18 08:45 | Outpatient (RCR) | payer MEDICARE, SELFPAY | END 2024-06-17 23:59 | disposition home or self-care (01) | LOC: CR 08:45 | PROVIDERS: PCP Internal Medicine; Referring Provider Student in an Organized Health Care Education/Training Program; Visit Provider Internal Medicine | DX: I25.10 Atherosclerotic heart disease of native coronary artery without angina pectoris (principal) | CPT/HCPCS: 93798 ==

== ENCOUNTER 2024-06-18 12:12 | Outpatient (RCR) | payer MEDICARE, SELFPAY | END 2024-07-17 23:59 | disposition home or self-care (01) | LOC: CR 12:12 | PROVIDERS: PCP Internal Medicine; Referring Provider Student in an Organized Health Care Education/Training Program; Visit Provider Internal Medicine | DX: I25.10 Atherosclerotic heart disease of native coronary artery without angina pectoris (principal) | CPT/HCPCS: 93798 ==

== ENCOUNTER 2024-07-19 09:08 | Outpatient (RCR) | payer MEDICARE, SELFPAY | END 2024-08-17 23:59 | disposition home or self-care (01) | LOC: CR 09:08 | PROVIDERS: PCP Internal Medicine; Referring Provider Student in an Organized Health Care Education/Training Program; Visit Provider Internal Medicine | DX: I25.10 Atherosclerotic heart disease of native coronary artery without angina pectoris (principal) | CPT/HCPCS: 93798 ==

== ENCOUNTER → 2024-09-29 12:53 | Outpatient (BNVA) | payer MEDICARE, SELFPAY | PROVIDERS: PCP Internal Medicine; Visit Provider Nurse Practitioner Family | DX: L98.8 Other specified disorders of the skin and subcutaneous tissue (principal); D18.01 Hemangioma of skin and subcutaneous tissue; L91.8 Other hypertrophic disorders of the skin; R20.8 Other disturbances of skin sensation; L29.89 Other pruritus; L53.8 Other specified erythematous conditions; D48.5 Neoplasm of uncertain behavior of skin; L57.0 Actinic keratosis | CPT/HCPCS: 11102; 17000; 17110; 99213 ==

== ENCOUNTER → 2024-11-04 11:14 | Outpatient (BNVA) | payer MEDICARE, SELFPAY | PROVIDERS: PCP Internal Medicine; Visit Provider Dermatology | DX: L57.0 Actinic keratosis (principal); D04.62 Carcinoma in situ of skin of left upper limb, including shoulder | CPT/HCPCS: 17000; 17272; 99213 ==

== ENCOUNTER 2024-11-09 10:25 | Outpatient (CLI) | payer MEDICARE, SELFPAY ==
--- NOTE | 2024-11-09 10:27 | USR_ITS ---
PROCEDURE INFORMATION: Exam: US Bilateral Noninvasive Physiologic Study of the Lower Extremity Arteries, Limited Exam date and time: 11/09/2024 10:28 AM Age: 74 years old Clinical indication: Pain; Leg, lower; Bilateral; Additional info: Pvd TECHNIQUE: Imaging protocol: Bilateral Limited bilateral noninvasive physiologic studies of lower extremity arteries. Waveforms were obtained and evaluated. Images were documented and archived. Exam is limited. COMPARISON: No relevant prior studies available. FINDINGS: Right femoral arteries: Not evaluated Right infrapopliteal arteries: Waveforms and velocity measurements are not provided Left femoral arteries: Not evaluated Left infrapopliteal arteries: Waveforms and velocity measurements are not provided Right Ankle-Brachial Index: Markedly low at 0.59 Left Ankle-Brachial Index: Normal at 0.98 US/CV ankle brachial index [id number] IMPRESSION: 1. Markedly low right ankle-brachial index at 0.59. 2. Normal left ankle-brachial index at 0.98.
== END 2024-11-09 10:26 | disposition home or self-care (01) ==
LOC: RAD 10:26
PROVIDERS: PCP Family Medicine; Visit Provider Family Medicine
DX: I73.9 Peripheral vascular disease, unspecified (principal); R93.89 Abnormal findings on diagnostic imaging of other specified body structures
CPT/HCPCS: 93922

== ENCOUNTER 2024-11-26 13:59 | Outpatient (CLI) | payer MEDICARE, SELFPAY ==
--- NOTE | 2024-11-26 14:03 | USCV_ITS ---
JesusSoy Age: 74 Gender: M : 1950 Exam Date: 11/26/2024 14:33 Ordering Phys: Raj Chapman MD Technologist: USR [place]am [place] [facility] [place]ication: pain. stent in lt leg MANAGER IN TRAINING to POP Risk Factors: Previous Vascular Surgery: RIGHT LEFT BP: 140.0 / 64.00 BP: 131.0/ 67.00 0 0 Waveform Velocity (cm/s) Velocity (cm/s) Waveform Biphasic 67.0 Iliac Prox 55.7 Triphasic Biphasic 66.3 Iliac Mid 63.0 Triphasic Biphasic 58.4 Iliac Distal 55.4 Triphasic Monophasic 190.0 MANAGER IN TRAINING 47.0 Triphasic Monophasic 42.0 SFA Prox 29.0 Biphasic Monophasic 19.0 SFA Mid 28.0 Biphasic Monophasic SFA Dist Biphasic 19.0 41.0 Monophasic 23.0 POP 73.0 Biphasic Monophasic 19.0 PREMIX CONCRETE BATCHER 22.0 Biphasic Monophasic 23.0 DPA 30.0 Biphasic 0.5 LORENA 0.9 FINDINGS Mild to moderate diffuse plaques on the right common iliac artery. Moderate to heavy dense irregular plaques in the common femoral and femoral artery on the right side. Biphasic Doppler waveforms in the iliac artery. Monophasic waveforms in the common femoral, femoral and infrapopliteal vessels. Resting LORENA of 0.5 on the right side. Biphasic waveforms in the left iliac, femoral and infrapopliteal vessels. Patent stent in the distal SFA/popliteal artery. Resting LORENA of 0.9 on the left side CONCLUSIONS 1. Abnormal resting LORENA of 0.5 on the right side testing severe peripheral artery disease possibly multisegmental. Diffuse moderate to heavy dense plaques in the common femoral and femoral arteries 2. Resting LORENA of 0.9 on the left side suggesting mild disease . Patent stent in the SFA/popliteal artery on the left side Dr Tiago Ramírez MD [facility] (Electronically Signed) Final Date: 26 November 2024 18:22 S
== END 2024-11-26 14:00 | disposition home or self-care (01) ==
LOC: RAD 14:01
PROVIDERS: PCP Family Medicine; Visit Provider Surgery
DX: I70.201 Unspecified atherosclerosis of native arteries of extremities, right leg (principal); I70.8 Atherosclerosis of other arteries
CPT/HCPCS: 93925

== ENCOUNTER 2025-03-28 08:33 | Outpatient (CLI) | payer MEDICARE, SELFPAY ==
--- NOTE | 2025-03-28 | ECG_ITS ---
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 Interpretive Statements LEXISCAN: Procedure: At the baseline, the blood pressure was 125/64 mmHg with a heart rate of 66 bpm. The electrocardiogram showed normal sinus rhythm, right bundle branch block with normal ST and T's. The Lexiscan was infused over a period of 20 seconds. A total of 0.4 mg of Lexiscan was infused. The stress phase was continued for a total of 5 minutes. Heart rate was at the end of stress phase was 78 bpm and a blood pressure of 94/55 mmHg. The EKG at the peak infusion revealed normal sinus rhythm with no significant ST-T wave changes. Sestamibi was injected 20 seconds after the Lexiscan infusion. Blood pressure at the end of recovery phase was 107/60 mmHg with a heart rate of 77 bpm. Conclusion: 1. Normal EKG response to Lexiscan infusion 2. No Lexiscan induced chest pain or cardiac arrhythmia. 3. Normal blood pressure and heart rate response. 4. Sestamibi/sestamibi perfusion scan pending; see separate report. Electronically Signed On 04-03-2025 23:35:35 CDT by Jagjit Louie M.D. [email or web address] [id number]
[2025-03-28 08:50] VITALS: BMI 13.8
--- NOTE | 2025-03-28 08:54 | NMCV_ITS ---
NM dannie perf SPECT r/s* [id number] Soy Lee Age: 74 Gender: M : 1950 Exam Date: 03/28/2025 09:46 Ordering Phys: Prince Gabrielle Montiel Technologist: PORSHA Bishop Exam Location: [facility] Indications: cp STRESS TEST Please see separate stress test report in [facility] for full findings IMAGE PROTOCOL Rest/Stress 1 Lexiscan Day Radiopharmaceutical Dose (mCi) Administration Site Administered by Rest: Tc-99m 10.5 IV Jacquie Billy, BEADING MACHINE OPERATOR Sestamibi Stress:Tc-99m 33 IV Jacquie Drivergle, BEADING MACHINE OPERATOR Sestamibi Rest: 28-Mar-2025 60 Discovery 630 Stress: 28-Mar-2025 30 Discovery 630 0.4mg Lexiscan. Images obtained in supine and prone position. SPECT RESULTS Technical Quality: Good Raw Data Analysis: Normal Image Corrections: No attenuation or motion correction applied Summed Stress Score: 7 Summed Rest Score: 1 Summed Difference Score: 6 PERFUSION FINDINGS There is a medium sized area of partially reversible perfusion defect seen in the inferior wall. This is consistent with medium sized area of prior infarct with medium sized area of tere-infarct ischemia in the RCA territory. FUNCTIONAL RESULTS (calculated via Gated SPECT) Stress Image LV EF (%): 73 Stress EDV (mL):100 TID: 1.13 Stress ESV (mL):27 FUNCTIONAL FINDINGS: There is normal left ventricular systolic function. IMPRESSIONS 1. Abnormal myocardial perfusion imaging with medium sized area of prior infarct with medium sized area of tere-infarct ischemia in RCA territory. 2. LV systolic function is normal. Jagjit Louie MD (Electronically Signed) Final Date: 30 March 2025 08:21 S
--- NOTE | 2025-03-28 09:01 | USCV_ITS ---
Soy Lee Age: 74 Gender: M : 1950 Exam Date: 03/28/2025 09:17 Ordering Phys: Prince Gabrielle Montiel Technologist: Exam Location: [facility] [place] Indication: chest pain BP: 130 / 74 HR: 68 Rhythm: Sinus Technical Quality: Adequate MEASUREMENTS (Male / Female) Normal Values 2D ECHO LV Diastolic Diameter PLAX 4.4 cm 4.2 - 5.9 / 3.9 - 5.3 cm IVS Diastolic Thickness 1.3 cm 0.6 - 1.0 / 0.6 - 0.9 cm IVS Systolic Thickness 2.0 cm LVPW Diastolic Thickness 1.4 cm 0.6 - 1.0 / 0.6 - 0.9 cm LVPW Systolic Thickness 1.7 cm LVOT Diameter 2.0 cm LV Ejection Fraction 2D Teich 66.8 % LV Ejection Fraction MOD 4C 52.4 % LV Ejection Fraction MOD 2C 52.6 % LV Ejection Fraction 2C AL 53.5 % LA Diameter 3.9 cm RA Systolic Volume 4C AL 46.5 ml RA Systolic Volume 4C MOD 44.9 ml Aorta at Sinotubular Diameter 3.4 cm M-MODE LA Ao Ratio MM 1.0 AV Cusp Separation MM 3.0 cm DOPPLER AV Peak Velocity 98.0 cm/s LVOT Peak Velocity 71.0 cm/s AV Area Cont Eq vti 2.5 cm squared AV Area Cont Eq pk 2.3 cm squared MV Area PHT 7.0 cm squared Mitral E to A Ratio 0.6 TV Peak Velocity 179.3 cm/s TR Peak Velocity 233.0 cm/s TR Peak Gradient 21.7 mmHg TV Peak E Velocity 85.0 cm/s PV Peak Velocity 82.0 cm/s FINDINGS Left Ventricle Normal left ventricular size and systolic function, EF 55%.Mild left ventricular hypertrophy. No regional wall motion abnormalities. Grade I/IV diastolic dysfunction (abnormal relaxation filling pattern), normal to mildly elevated filling pressures. Right Ventricle The right ventricle is normal in size and function. Right Atrium The right atrium is normal in size. Left Atrium The left atrium is normal in size. Mitral Valve No gross abnormalities noted Aortic Valve No gross abnormalities noted Tricuspid Valve Trace to mild tricuspid valve regurgitation. Estimated pulmonary artery peak systolic pressure within normal Pulmonic Valve No gross abnormalities noted Pericardium Normal pericardium without effusion. Aorta Normal ascending aorta dimension. IVC Normal inferior vena cava. CONCLUSIONS Normal left ventricular size and systolic function, EF 55%.Mild left ventricular hypertrophy. No regional wall motion abnormalities. Grade I/IV diastolic dysfunction (abnormal relaxation filling pattern), normal to mildly elevated filling pressures. Trace to mild tricuspid valve regurgitation. Estimated pulmonary artery peak systolic pressure within normal. There is no pericardial effusion. There are no intracardiac masses. No similar previous studies are available for comparison Dr Tiago Ramírez MD FAC (Electronically Signed) Final Date: 29 March 2025 15:02 S
[2025-03-28 10:36] VITALS: BP 107/78; PULSE 78
== END 2025-03-28 08:34 | disposition home or self-care (01) ==
PROVIDERS: PCP Family Medicine; Visit Provider Student in an Organized Health Care Education/Training Program
DX: R07.9 Chest pain, unspecified (principal); R53.83 Other fatigue; I25.10 Atherosclerotic heart disease of native coronary artery without angina pectoris; Z95.5 Presence of coronary angioplasty implant and graft; E78.5 Hyperlipidemia, unspecified; I10 Essential (primary) hypertension; I36.1 Nonrheumatic tricuspid (valve) insufficiency; I51.7 Cardiomegaly; I50.30 Unspecified diastolic (congestive) heart failure; I25.2 Old myocardial infarction; I25.6 Silent myocardial ischemia; R93.1 Abnormal findings on diagnostic imaging of heart and coronary circulation
CPT/HCPCS: 36415; 78452; 93017; 93306; 96374; A9500; J2785

== ENCOUNTER → 2025-04-11 13:41 | Outpatient (BNVA) | payer MEDICARE, SELFPAY | PROVIDERS: PCP Family Medicine; Visit Provider Nurse Practitioner Family | DX: L98.8 Other specified disorders of the skin and subcutaneous tissue (principal); D18.01 Hemangioma of skin and subcutaneous tissue; L81.3 Cafe au lait spots; Z08 Encounter for follow-up examination after completed treatment for malignant neoplasm; Z85.828 Personal history of other malignant neoplasm of skin | CPT/HCPCS: 17000; 99213 ==